=== PATIENT | male | born 1940 | race African-American/Black ===

== ENCOUNTER 2018-07-13 10:01 | Inpatient (IN) ==
--- NOTE | 2018-07-13 10:43 | ED ---
HPI General Chief Complaint: Altered Mental Status Stated Complaint: Medical Time Seen by Provider: 07/13/18 10:20 Source: RN notes reviewed Mode of arrival: EMS Limitations: altered mental status History of Present Illness HPI narrative: The patient is a 78-year-old -[place] male who presents to the emergency department via EMS from hospice for change in mentation and periods of apnea. Apparently the patient recently traveled via train from [facility] to the local area to visit family. The patient apparently had fallen several times at home and was evaluated in the emergency department and the transfer to hospice care center. Apparently the patient became combative and confused overnight it was administered Haldol and Ativan. They then noted the patient had periods of apnea and contacted the family. The patient apparently is on hospice but is a full code and according to EMS the family wants the patient intubated and all measures performed, despite being on hospice. The patient apparently is on hospice for end-stage congestive heart failure. The patient withdraws to pain, but does not answer questions or follow commands. Limited history secondary to patient's mental status. MD complaint: altered mental status, confusion and decreased responsiveness Onset (ago): hour(s) Timing confirmed by: other Severity: moderate Consistency of symptoms: waxing and waning Context: change in medication Associated symptoms: shortness of breath Related Data Home Medications Medication Instructions Recorded Confirmed apixaban [Eliquis] 5 mg PO BID 07/13/18 07/13/18 aspirin 81 mg PO DAILY 07/13/18 07/13/18 ferrous sulfate [FeroSul] 325 mg PO DAILY 07/13/18 07/13/18 glipizide 10 mg PO BID 07/13/18 07/13/18 insulin NPH and regular human 5 unit SUB-Q HS 07/13/18 07/13/18 [Humulin 70/30 U-100 Insulin] insulin NPH and regular human 10 units SUB-Q AC BREAKFAST 07/13/18 07/13/18 [Humulin 70/30 U-100 Insulin] metolazone 2.5 mg PO 3XW 07/13/18 07/13/18 morphine concentrate 5 mg SUBLINGUAL Q2H PRN 07/13/18 07/13/18 polyethylene glycol 3350 [Miralax] 17 gm PO DAILY PRN 07/13/18 07/13/18 sennosides [Senokot] 8.6 mg PO BID PRN 07/13/18 07/13/18 torsemide 20 mg PO DAILY 07/13/18 07/13/18 tramadol [Ultram] 50 mg PO Q6H PRN 07/13/18 07/13/18 Allergies Allergy/AdvReac Type Severity Reaction Status Date / Time No Known Allergies Allergy Unverified 07/13/18 10:15 Review of Systems ROS Unobtainable ROS Unobtainable: unobtainable due to mental status [facility] Medical History Medical History Amyloidosis (Acute) Heart failure (Acute) Social History Social History Substance History: No History of Abuse Smoking Status: Never smoker How Often Do You Have a Drink Containing Alcohol: Never Recent Travel in [facility] within the Last 8 Weeks: Yes Recent Out of Country Travel within the Last 8 Weeks: No Exam Narrative Exam Narrative: GENERAL: Eyes closed, withdraws to pain, does not follow commands. SKIN: Focused skin assessment warm/dry. HEAD: Atraumatic. Normocephalic. EYES: Patient holds his eyelids shut, would not allow me to evaluate pupil responsiveness and regularity. ENT: No nasal bleeding or discharge. Mucous membranes pink and moist. NECK: Trachea midline. No JVD. CARDIOVASCULAR: Regular rate and rhythm. No murmur appreciated. Heart rate in the 60s. RESPIRATORY: No accessory muscle use. Intermittent periods of apnea lasting up to 20 seconds. Response to stimulation. Diminished breath sounds in the bases. Gastrointestinal: Abdomen is soft and nontender. No guarding rigidity. MUSCULOSKELETAL: Bilateral lower extremity pitting edema. Swollen feet noted. NEUROLOGICAL: Eyes closed, says "no "when trying to open his eyelids are asked patient to perform commands. Withdraws to pain. PSYCHIATRIC: Appears confused. Course Consultations Consultation #1: I discussed the patient with Dr. Velazquez who agrees with 23 hour observation. Time: 14:00 Initial Documented Vital Signs Temperature 98.4 F 07/13/18 10:16 Pulse Rate 61 07/13/18 10:16 Respiratory Rate 10 L 07/13/18 10:16 Blood Pressure 138/87 07/13/18 10:16 Pulse Oximetry 100 07/13/18 10:16 Last Documented Vital Signs Temperature 98.4 F 07/13/18 10:16 Pulse Rate 62 07/13/18 13:00 Respiratory Rate 11 L 07/13/18 13:00 Blood Pressure 124/79 07/13/18 13:00 Pulse Oximetry 100 07/13/18 13:00 Medical Decision Making MDM Narrative Medical decision making narrative: IV was established, labs are drawn and sent, and the patient was placed on cardiac telemetry monitoring and continuous pulse oximetry monitoring. EKG was ordered and interpreted. Chest x-ray was obtained. CT the brain was obtained. These measures were instituted as patient has altered mental status and according to hospice patient is a full code and family wants all measures/test performed despite being on hospice. The patient's creatinine is elevated at 2.27, do not have baseline. Potassium is mildly elevated at 5.4. 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 The patient has not awake and alert enough to tell me if he has had any ataxia or urinary incontinence. I did discuss with a family member at bedside who states the patient is normally able to walk with a cane, is able to hold a conversation, and able to travel on a train. She states this is an acute change in his meditation, unsure if that was related to the medications he was administer last night. The daughter is flying in from [facility] into [place] and will arrive somewhere between 5 and 7 PM. The patient still has altered mental status, unsure of the power of criminal attorney's wishes at this time, therefore, the patient will be 23 hour observation to see if the patient clears from the medications and to determine the goal of therapy from the power of criminal attorney, his daughter. Medical Screen Exam Complete: Yes Emergency Medical Condition: Yes Differential Diagnosis Differential Diagnosis: Differential diagnosis includes delirium, medication side effect, subdural hemorrhage, UTI, congestive heart failure, acute renal failure, pulmonary edema, sundowning syndrome. Lab Data Result diagrams: 07/13/18 10:47 07/13/18 11:31 Lab Results 07/13/18 07/13/18 07/13/18 Range/Units 10:47 11:31 11:31 WBC 5.2 (4.0-11.0) th/mm3 RBC 5.38 (4.50-5.90) mil/mm3 Hgb 14.2 (13.0-17.0) gm/dL Hct 42.9 (39.0-51.0) % MCV 79.7 L (80.0-100.0) fL MCH 26.4 L (27.0-34.0) pg MCHC 33.1 (32.0-36.0) % RDW 17.6 H (11.6-17.2) % Plt Count 152 (150-450) th/mm3 MPV 10.7 (7.0-11.0) fL Neut % (Auto) 52.7 (16.0-70.0) % Lymph % (Auto) 29.4 (9.0-44.0) % Rincon % (Auto) 15.0 H (0.0-8.0) % Eos % (Auto) 1.8 (0.0-4.0) % Baso % (Auto) 1.1 (0.0-2.0) % Neut # (Auto) 2.7 (1.8-7.7) th/mm3 Lymph # (Auto) 1.5 (1.0-4.8) th/mm3 Rincon # (Auto) 0.8 (0.0-0.9) th/mm3 Eos # (Auto) 0.1 (0.0-0.4) th/mm3 Baso # (Auto) 0.1 (0.0-0.2) th/mm3 WBC Differential . Differential Comment Auto diff final Sodium 135 L (136-145) meq/L Potassium 5.4 H (3.5-5.1) meq/L Chloride 104 (98-107) meq/L Carbon Dioxide 20.9 L (21.0-32.0) meq/L Anion Gap 10 (5-15) meq/L BUN 49 H (7-18) mg/dL Creatinine 2.27 H (0.60-1.30) mg/dL Estimated GFR 34 L (>89) mL/min Random Glucose 173 H (74-106) mg/dL Calcium 8.5 (8.5-10.1) mg/dL Total Bilirubin 1.3 H (0.2-1.0) mg/dL AST 41 H (15-37) U/L ALT 25 (12-78) U/L Alkaline Phosphatase 129 H (45-117) U/L Ammonia 35 H (11-32) mcmol/L Total Creatine Kinase 216 (39-308) U/L Troponin I 0.36 H (0.02-0.05) ng/mL Total Protein 7.1 (6.4-8.2) g/dL Albumin 3.2 L (3.4-5.0) g/dL TSH 11.600 H (0.358-3.740) uIU/mL Free T4 (0.76-1.46) ng/dL Free T3 (2.18-3.98) pg/mL Urine Color (Yellw/Straw) Urine Clarity (Clear) Urine pH (5.0-8.5) Ur Specific Felch (1.002-1.035) Urine Protein (Neg-Trace) mg/dL Urine Glucose (UA) (Negative) mg/dL Urine Ketones (Negative) mg/dL Urine Occult Blood (Negative) Urine Nitrate (Negative) Urine Bilirubin (Negative) Urine Urobilinogen (Less than 2) mg/dL Ur Leukocyte Esterase (Negative) Urine RBC (0-3) /hpf Urine WBC (0-5) /hpf Urine Bacteria (None) /hpf Hyaline Casts (0-3) /lpf Urine Mucus (Occasional) /lpf Micro UA Comment Ur Microscopic Review Urine Culture Comments 07/13/18 07/13/18 Range/Units 11:31 11:45 WBC (4.0-11.0) th/mm3 RBC (4.50-5.90) mil/mm3 Hgb (13.0-17.0) gm/dL Hct (39.0-51.0) % MCV (80.0-100.0) fL MCH (27.0-34.0) pg MCHC (32.0-36.0) % RDW (11.6-17.2) % Plt Count (150-450) th/mm3 MPV (7.0-11.0) fL Neut % (Auto) (16.0-70.0) % Lymph % (Auto) (9.0-44.0) % Rincon % (Auto) (0.0-8.0) % Eos % (Auto) (0.0-4.0) % Baso % (Auto) (0.0-2.0) % Neut # (Auto) (1.8-7.7) th/mm3 Lymph # (Auto) (1.0-4.8) th/mm3 Rincon # (Auto) (0.0-0.9) th/mm3 Eos # (Auto) (0.0-0.4) th/mm3 Baso # (Auto) (0.0-0.2) th/mm3 WBC Differential Differential Comment Sodium (136-145) meq/L Potassium (3.5-5.1) meq/L Chloride (98-107) meq/L Carbon Dioxide (21.0-32.0) meq/L Anion Gap (5-15) meq/L BUN (7-18) mg/dL Creatinine (0.60-1.30) mg/dL Estimated GFR (>89) mL/min Random Glucose (74-106) mg/dL Calcium (8.5-10.1) mg/dL Total Bilirubin (0.2-1.0) mg/dL AST (15-37) U/L ALT (12-78) U/L Alkaline Phosphatase (45-117) U/L Ammonia (11-32) mcmol/L Total Creatine Kinase (39-308) U/L Troponin I (0.02-0.05) ng/mL Total Protein (6.4-8.2) g/dL Albumin (3.4-5.0) g/dL TSH (0.358-3.740) uIU/mL Free T4 1.26 (0.76-1.46) ng/dL Free T3 2.56 (2.18-3.98) pg/mL Urine Color Yellow (Yellw/Straw) Urine Clarity Hazy H (Clear) Urine pH 5.0 (5.0-8.5) Ur Specific Felch 1.012 (1.002-1.035) Urine Protein 30 H (Neg-Trace) mg/dL Urine Glucose (UA) Negative (Negative) mg/dL Urine Ketones Negative (Negative) mg/dL Urine Occult Blood Small H (Negative) Urine Nitrate Negative (Negative) Urine Bilirubin Negative (Negative) Urine Urobilinogen Less than 2 (Less than 2) mg/dL Ur Leukocyte Esterase Negative (Negative) Urine RBC 1 (0-3) /hpf Urine WBC 1 (0-5) /hpf Urine Bacteria Rare H (None) /hpf Hyaline Casts 1 (0-3) /lpf Urine Mucus Few H (Occasional) /lpf Micro UA Comment Culture not ind Ur Microscopic Review Not Reportable Urine Culture Comments Culture not ind Imaging Data Radiologist's impression: Chest X-Ray 07/13/18 10:36 CONCLUSION: Cardiomegaly. No acute pulmonary disease. Head CT 07/13/18 10:36 CONCLUSION: 1. Diffuse ventriculomegaly that is out of proportion to degree of atrophy. Clinical correlation for normal pressure hydrocephalus is recommended. 2. Otherwise, no acute intracranial abnormality. . ECG Data EKG Prior to Arrival: No Attestation: I personally reviewed and interpreted this ECG as follows: Interpretation: Electronic ventricular paced rhythm at a rate of 60. No further analysis. Discharge Plan Discharge Disposition Patient Disposition: 30 Still Patient Discharge Condition Condition: Stable Discharge Details Diagnosis: Delirium due to general medical condition, Altered mental status, Elevated troponin, Acute kidney injury Physicians Team ED Provider: Zion Estrada Primary Care Provider: UNKNOWN, Attending Provider: Shashank Velazquez Rxs /Orders / Referrals /Forms Prescriptions: No Action metolazone 2.5 mg Tablet 2.5 mg PO 3XW RF: 0 sennosides [Senokot] 8.6 mg Tablet 8.6 mg PO BID PRN (Reason: Constipation) RF: 0 torsemide 20 mg Tablet 20 mg PO DAILY RF: 0 polyethylene glycol 3350 [Miralax] 17 gram Powder In Packet 17 gm PO DAILY PRN (Reason: Constipation) RF: 0 glipizide 10 mg Tablet 10 mg PO BID RF: 0 insulin NPH and regular human [Humulin 70/30 U-100 Insulin] 100 unit/mL (70-30 ) Suspension 5 unit SUB-Q HS RF: 0 insulin NPH and regular human [Humulin 70/30 U-100 Insulin] 100 unit/mL (70-30 ) Suspension 10 units Sub-Q AC BREAKFAST RF: 0 tramadol [Ultram] 50 mg Tablet 50 mg PO Q6H PRN (Reason: Pain) RF: 0 ferrous sulfate [FeroSul] 325 mg (65 mg iron) Tablet 325 mg PO DAILY RF: 0 aspirin 81 mg Tablet,Chewable 81 mg PO DAILY RF: 0 morphine concentrate 20 mg/mL Syringe 5 mg SUBLINGUAL Q2H PRN (Reason: Pain) RF: 0 apixaban [Eliquis] 5 mg Tablet 5 mg PO BID RF: 0 Discharge Interventions Interventions: Vital Signs Last Done: 07/13/18 13:00 Status ED Status: Admitted Observation Patient
--- NOTE | 2018-07-13 11:01 | XR ---
EXAM DATE: 07/13/2018 10:54 AM EDT AGE/SEX: 78 years / Male INDICATIONS: Short of breath CLINICAL DATA: This is the patient's initial encounter. Patient reports that signs and symptoms have been present for 1 day and indicates a pain score of Nonresponsive. MEDICAL/SURGICAL HISTORY: Non-responsive. Non-responsive. COMPARISON: No prior exams available for comparison. FINDINGS: The cardiac silhouette is enlarged in transverse diameter. The lungs are free of acute parenchymal op acity. No effusions are identified. The aortic knob is prominent with tortuosity of the descending th oracic aorta. CONCLUSION: Cardiomegaly. No acute pulmonary disease. Electronically signed by: Fuentes Grant MD 07/13/2018 10:59 AM EDT
[2018-07-13 11:06] LABS: Baso # (Auto) 0.1 th/mm3 (0.0-0.2); Baso % (Auto) 1.1 % (0.0-2.0); Eos # (Auto) 0.1 th/mm3 (0.0-0.4); Eos % (Auto) 1.8 % (0.0-4.0); Hematocrit 42.9 % (39.0-51.0); Hemoglobin 14.2 gm/dL (13.0-17.0); Lymph # (Auto) 1.5 th/mm3 (1.0-4.8); Lymph % (Auto) 29.4 % (9.0-44.0); Mean Corpuscular HGB Conc 33.1 % (32.0-36.0); Mean Corpuscular Hemoglobin 26.4 pg (27.0-34.0); Mean Corpuscular Volume 79.7 fL (80.0-100.0); Mean Platelet Volume 10.7 fL (7.0-11.0); Mono # (Auto) 0.8 th/mm3 (0.0-0.9); Neut # (Auto) 2.7 th/mm3 (1.8-7.7); Neut % (Auto) 52.7 % (16.0-70.0); Platelet Count 152 th/mm3 (150-450); Red Blood Count 5.38 mil/mm3 (4.50-5.90); Red Cell Distribution Width 17.6 % (11.6-17.2); White Blood Count 5.2 th/mm3 (4.0-11.0)
--- NOTE | 2018-07-13 11:36 | CT ---
EXAM DATE: 07/13/2018 11:23 AM EDT AGE/SEX: 78 years / Male INDICATIONS: Altered mental status CLINICAL DATA: This is the patient's initial encounter. Patient reports that signs and symptoms have been present for 1 day and indicates a pain score of Nonresponsive. MEDICAL/SURGICAL HISTORY: Cardiovascular disease. None. RADIATION DOSE: 56.35 CTDI (mGy) COMPARISON: No prior exams available for comparison. TECHNIQUE: CT of the head without contrast. Using automated exposure control and adjustment of the mA and/or kV according to patient size, radiation dose was kept as low as reasonably achievable to ob tain optimal diagnostic quality images. DICOM format image data is available electronically for revi ew and comparison. FINDINGS: Cerebrum: Moderate diffuse cerebral atrophy. Diffuse ventriculomegaly out of proportion to degree of atrophy. Mild periventricular white matter hypodensities. No evidence of midline shift, mass lesion, hemorrhage or acute infarction. No extraaxial fluid collections are seen. Posterior Fossa: The cerebellum and brainstem are intact. The 4th ventricle is midline. The cerebe llopontine angle is unremarkable. Extracranial: The visualized portion of the orbits is intact. Skull: The calvaria is intact. No evidence of skull fracture. CONCLUSION: 1. Diffuse ventriculomegaly that is out of proportion to degree of atrophy. Clinical correlation for normal pressure hydrocephalus is recommended. 2. Otherwise, no acute intracranial abnormality. . Electronically signed by: Hima Mays MD 07/13/2018 11:35 AM EDT
[2018-07-13 12:14] LABS: Bacteria,Urine Rare /hpf; Bilirubin,Urine Negative (Negative); Clarity,Urine Hazy (Clear); Color,Urine Yellow (Yellw/Straw); Glucose,Urine (UA) Negative (Negative); Hyaline Casts,Urine 1 /lpf (0-3); Leukocyte Esterase,Urine Negative (Negative); Mucus,Urine Few /lpf (Occasional); Nitrite,Urine Negative (Negative); Specific Gravity,Urine 1.012 (1.002-1.035)
[2018-07-13 12:21] LABS: Alanine Aminotransferase 25 U/L (12-78); Albumin 3.2 g/dL (3.4-5.0); Anion Gap 10 meq/L (5-15); Aspartate Aminotransferase 41 U/L (15-37); Blood Urea Nitrogen 49 mg/dL (7-18); Calcium 8.5 mg/dL (8.5-10.1); Carbon Dioxide 20.9 meq/L (21.0-32.0); Chloride 104 meq/L (98-107); Glomerular Filtration Rate 34 mL/min (>89); Glucose,Random 173 mg/dL (74-106); Sodium 135 meq/L (136-145)
[2018-07-13 12:22] LABS: Potassium 5.4 meq/L (3.5-5.1)
[2018-07-13 12:33] LABS: Alkaline Phosphatase 129 U/L (45-117); Creatine Kinase 216 U/L (39-308); Total Protein 7.1 g/dL (6.4-8.2); Troponin I 0.36 ng/mL (0.02-0.05)
[2018-07-13 13:48] LABS: Free T4 (Free Thyroxine) 1.26 ng/dL (0.76-1.46); Triiodothyronine (T3) Free 2.56 pg/mL (2.18-3.98)
[2018-07-13] MEDS ORDERED: Bisacodyl 10 MG Supp RECTAL PRN (14:03)
[2018-07-13] MEDS ORDERED: Sodium Chlor 0.9% Inj 500 ML IV.SIG SCH (15:00)
--- NOTE | 2018-07-13 16:19 | ECG ---
Date Performed: 07/13/2018 Time Performed: 10:50:45 PTAGE: 78 years EKG: ELECTRONIC VENTRICULAR PACEMAKER ABNORMAL RHYTHM ECG NO PREVIOUS TRACING DOCTOR: Fuentes Torers Interpretating Date/Time 07/13/2018 16:17:35
--- NOTE | 2018-07-13 17:12 | P.HPIM ---
History of Present Illness Service: [facility] Primary Care Physician: UNKNOWN History of Present Illness: The history is limited due to the patient's current condition and mentation. Most of the history obtained from the EMR, the patient's cousin at bedside. He is a 78-year-old male with a history of diabetes and end-stage CHF who presented to the emergency room from hospice. The patient was on hospice in [place]. There was in agreement with hospice down here. The patient arrived a couple of days ago to visit with family. He has been very tired and apparently fell multiple times at home. Lower extremity edema has been getting worse. He was eventually taken to the hospice care center. He reportedly became combative and confused overnight and was given Haldol and Ativan. When the patient's family were contacted today, they indicated that he was a full code and they wanted aggressive measures. Patient is reportedly on hospice for end- stage CHF. The patient's daughter is reportedly flying into town later today from [place] to further direct the patient's care. Patient himself briefly wakes up to stimulation but quickly falls back asleep. Not really interacting. - Diagnosis (1) Acute encephalopathy (2) Diabetes (3) CHF (congestive heart failure) (4) Delirium due to general medical condition (5) Elevated troponin (6) Acute kidney injury Review of Systems unobtainable due to mental status PMFSH - History History Provided By: Medical Record, Gunner Mate / EMT - Medical History Medical History: Medical History (Last Updated 07/13/18 @ 17:34 by Shashank Velazquez MD) Amyloidosis CHF (congestive heart failure) Diabetes Heart failure - Family History Family History: Family History (Last Updated 07/13/18 @ 17:04 by Shashank Velazquez MD) Other Family history non-contributory - Tobacco History Smoking Status: Unknown if ever smoked - Alcohol History How Often Do You Have a Drink Containing Alcohol: Unable to Obtain - Substance Use History Substance History: No History of Abuse - Travel History Recent Travel in the [place] Within the Last 8 Weeks: Yes Recent Travel Out of the Country Within the Last 8 Weeks: No - Immunization History Tetanus Immunization: Unsure Hx Influenza Vaccine This Season: Yes Medications and Allergies Active Medications: Active Medications Al Hydroxide/Mg Hydroxide (Milk Of Magnesia Liq) 30 ml PO Q12H PRN PRN Reason: Mild Constipation Bisacodyl (Dulcolax Supp) 10 mg RECTAL DAILY PRN PRN Reason: SEVERE CONSITIPATION Ferrous Sulfate (Ferosul) 325 mg PO DAILY DONG Sodium Chloride (Ns Inj) 500 mls @ 0 mls/hr IV.SIG BOLUS DONG Lactulose (Lactulose Liq) 30 ml PO DAILY PRN PRN Reason: SEVERE CONSITIPATION Sennosides (Senokot) 17.2 mg PO Q12H PRN PRN Reason: Moderate Constipation Sodium Chloride (Ns Flush) 2 ml IV.FLUSH PRN PRN PRN Reason: FLUSH AFTER USING IV ACCESS Allergies Allergy/AdvReac Type Severity Reaction Status Date / Time No Known Allergies Allergy Unverified 07/13/18 10:15 Home Medications Medication Instructions Recorded Confirmed Type apixaban [Eliquis] 5 mg PO BID 07/13/18 07/13/18 History aspirin 81 mg PO DAILY 07/13/18 07/13/18 History ferrous sulfate [FeroSul] 325 mg PO DAILY 07/13/18 07/13/18 History glipizide 10 mg PO BID 07/13/18 07/13/18 History insulin NPH and regular human 5 unit SUB-Q HS 07/13/18 07/13/18 History [Humulin 70/30 U-100 Insulin] insulin NPH and regular human 10 units SUB-Q AC BREAKFAST 07/13/18 07/13/18 History [Humulin 70/30 U-100 Insulin] metolazone 2.5 mg PO 3XW 07/13/18 07/13/18 History morphine concentrate 5 mg SUBLINGUAL Q2H PRN 07/13/18 07/13/18 History polyethylene glycol 3350 [Miralax] 17 gm PO DAILY PRN 07/13/18 07/13/18 History sennosides [Senokot] 8.6 mg PO BID PRN 07/13/18 07/13/18 History torsemide 20 mg PO DAILY 07/13/18 07/13/18 History tramadol [Ultram] 50 mg PO Q6H PRN 07/13/18 07/13/18 History Exam Vital signs: Vital Signs 07/13/18 10:16 07/13/18 10:51 07/13/18 10:55 Temperature 98.4 F Pulse Rate 61 59 L Respiratory Rate 10 L 19 Blood Pressure 138/87 133/82 Pulse Oximetry 100 100 100 07/13/18 13:00 07/13/18 15:00 07/13/18 16:00 Temperature Pulse Rate 62 59 L 61 Respiratory Rate 11 L 16 16 Blood Pressure 124/79 129/76 140/84 Pulse Oximetry 100 100 98 07/13/18 16:04 Temperature Pulse Rate Respiratory Rate Blood Pressure Pulse Oximetry 99 Intake & Output 07/12/18 07/13/18 07/13/18 18:59 06:59 18:59 Weight 94.347 kg Narrative: GENERAL: Elderly male, appears sedated CARDIOVASCULAR: Distant heart sound. Normal rate and regular rhythm without significant murmur. RESPIRATORY: Good respiratory efforts. Breath sounds equal and clear to auscultation bilaterally. GASTROINTESTINAL: Abdomen soft, non-tender, non-distended. Normal active bowel sounds MUSCULOSKELETAL: Bilateral lower extremities with 2+ edema NEURO: Lethargic. Briefly woke up and move all extremities. No focal weakness noted. Results - Labs CBC & Chem 7: 07/13/18 10:47 07/13/18 11:31 Labs: Short CBC 07/13/18 Range/Units 10:47 WBC 5.2 (4.0-11.0) th/mm3 Hgb 14.2 (13.0-17.0) gm/dL Hct 42.9 (39.0-51.0) % Plt Count 152 (150-450) th/mm3 BMP 07/13/18 11:31 Sodium 135 L Potassium 5.4 H Chloride 104 Carbon Dioxide 20.9 L BUN 49 H Creatinine 2.27 H Calcium 8.5 Cardiac Enzymes 07/13/18 07/13/18 Range/Units 11:31 15:04 Total Creatine Kinase 216 (39-308) U/L Troponin I 0.36 H 0.32 H (0.02-0.05) ng/mL Liver Function 07/13/18 Range/Units 11:31 Total Bilirubin 1.3 H (0.2-1.0) mg/dL AST 41 H (15-37) U/L ALT 25 (12-78) U/L Alkaline Phosphatase 129 H (45-117) U/L Albumin 3.2 L (3.4-5.0) g/dL Urine 07/13/18 Range/Units 11:45 Urine Color Yellow (Yellw/Straw) Urine Clarity Hazy H (Clear) Urine pH 5.0 (5.0-8.5) Ur Specific [place] 1.012 (1.002-1.035) Urine Protein 30 H (Neg-Trace) mg/dL Urine Glucose (UA) Negative (Negative) mg/dL - Imaging Impressions Chest X-Ray 07/13/18 10:36 CONCLUSION: Cardiomegaly. No acute pulmonary disease. Head CT 07/13/18 10:36 CONCLUSION: 1. Diffuse ventriculomegaly that is out of proportion to degree of atrophy. Clinical correlation for normal pressure hydrocephalus is recommended. 2. Otherwise, no acute intracranial abnormality. . Caprini VTE Risk Assessment Caprini VTE Risk Assessment: Moderate/High Risk (score >= 2) Caprini Risk Assessment Model: Point Value = 1 Point Value = 2 Point Value = 3 Point Value = 5 Age 41-60 Minor surgery BMI > 25 kg/m2 Swollen legs Varicose veins or History of unexplained or recurrent spontaneous Oral contraceptives or hormone replacement Sepsis (< 1 month) Serious lung disease, including pneumonia (< 1 month) Abnormal pulmonary function Acute myocardial infarction Congestive heart failure (< 1 month) History of inflammatory bowel disease Medical patient at bed rest Age 61-74 Arthroscopic surgery Major open surgery (> 45 min) Laparoscopic surgery (> 45 min) Malignancy Confined to bed (> 72 hours) Immobilizing plaster cast Central venous access Age >= 75 History of VTE Family history of VTE Factor V Leiden Prothrombin [id number] Lupus anticoagulant Anticardiolipin antibodies Elevated serum homocysteine Heparin-induced thrombocytopenia Other congenital or acquired thrombophilia Stroke (< 1 month) Elective arthroplasty Hip, pelvis, or leg fracture Acute spinal cord injury (< 1 month) Prophylaxis Regimen: Total Risk Factor Score Risk Level Prophylaxis Regimen 0-1 Low Early ambulation 2 Moderate Order ONE of the following: *Sequential Compression Device (SCD) *Heparin 5000 units SQ BID 3-4 Higher Order ONE of the following medications: *Heparin 5000 units SQ TID *Enoxaparin/Lovenox 40 mg SQ daily (WT < 150 kg, CrCl > 30 mL/min) *Enoxaparin/Lovenox 30 mg SQ daily (WT < 150 kg, CrCl > 10-29 mL/min) *Enoxaparin/Lovenox 30 mg SQ BID (WT < 150 kg, CrCl > 30 mL/min) AND/OR *Sequential Compression Device (SCD) 5 or more Highest Order ONE of the following medications: *Heparin 5000 units SQ TID (Preferred with Epidurals) *Enoxaparin/Lovenox 40 mg SQ daily (WT < 150 kg, CrCl > 30 mL/min) *Enoxaparin/Lovenox 30 mg SQ daily (WT < 150 kg, CrCl > 10-29 mL/min) *Enoxaparin/Lovenox 30 mg SQ BID (WT < 150 kg, CrCl > 30 mL/min) AND *Sequential Compression Device (SCD) Assessment and Plan - Assessment (1) Acute encephalopathy Code(s): G93.40 - Encephalopathy, unspecified Status: Acute (2) Diabetes Code(s): E11.9 - Type 2 diabetes mellitus without complications Status: Acute (3) CHF (congestive heart failure) Code(s): I50.9 - Heart failure, unspecified Status: Acute (4) Delirium due to general medical condition Code(s): F05 - Delirium due to known physiological condition Status: Acute (5) Elevated troponin Code(s): R74.8 - Abnormal levels of other serum enzymes Status: Acute (6) Acute kidney injury Code(s): N17.9 - Acute kidney failure, unspecified Status: Acute - Plan 78-year-old male who reportedly was on hospice and has been falling more and more recently. The patient was initially had hospice care center and was transferred to the hospital when his family requested aggressive care. Acute encephalopathy: There was reported falls and then some episodes of combativeness. Patient subsequently was given Haldol and Ativan when he moves mental status deteriorated. - Head CT revealed Diffuse ventriculomegaly that is out of proportion to degree of atrophy. Clinical correlation for normal pressure hydrocephalus is recommended. Otherwise no acute intracranial abnormality. - Will continue with neuro checks. - Consult neurology for assistance - Suspect Haldol and Ativan contributing to sedated state. -The patient's daughter later arrived. I discussed the case with her. For now they want full aggressive care including resuscitation if needed. However she states she does not want him to be on sedated medication that she will assist with redirecting him if he becomes confused. -Consult palliative care to assist with goals of care. History of CHF: No evidence of pulmonary volume overload for now. However he does have LE pitting edema. Given mental status and renal function, hold diuretics for now. - Continue to monitor. -Patient was on hospice for end-stage CHF. Diabetes: - Hold oral hypoglycemic agents. Sliding scale insulin with Accu-Cheks. Acute versus chronic renal failure: - His baseline is unknown and the patient has been on hospice. - Since he is not eating, will give him a total of 500 cc normal saline. - Repeat a BMP later today. Elevated troponin: - Suspect this is likely secondary to renal failure. - Follow-up serial troponin. Discussed Condition With: Dr. Estrada Discharge Planning: Admit to neuro floor. Monitor closely.
[2018-07-13] MEDS ORDERED: Sodium Chlor 0.9% Inj 500 ML IV.CONT SCH (17:36)
[2018-07-13 17:51] LABS: ABG Base Excess -2.9 mmol/L (-2-2); ABG PCO2 29 mmHg (38-42); ABG PO2 102 mmHg (61-120)
--- NOTE | 2018-07-13 19:25 | MB ---
cc: Fuentes Lucio MD DATE: 07/13/2018 HISTORY OF PRESENT ILLNESS: A 78-year-old man with a history of hypertension, diabetes, hypercholesterolemia, stroke 3 years ago, possibly congestive heart failure, pacemaker, prostate cancer, who was in hospice up in [facility], presumably because of generally weak or falls or immobility and then came down here on vacation. Even though he was on hospice he came down on the car train with his niece and then she found that he fell twice in the condo so she evidently brought him over to the local hospice center where he evidently was agitated and got sedation here. MEDICATIONS AT HOME: 1. Glipizide. 2. Aspirin 81. 3. Eliquis 5 b.i.d. 4. Torsemide. 5. Metolazone. 6. Ultram 50 every 6 hours p.r.n. 7. Morphine 5 mg sublingual q.2 p.r.n. 8. Insulin. He evidently was having some apnea. He became combative and confused overnight and was given Haldol and Ativan then he had apnea. The family was called and he was brought into the hospital. The family wanted the patient to be intubated and all measures performed despite being on hospice. Evidently was given the Haldol over in hospice as far as I can tell. REVIEW OF SYSTEMS: According to the niece, no history of OH, or known atrial fibrillation, to renal, hepatic, pulmonary disease, thyroid disease, lupus, ulcer, seizure. SOCIAL HISTORY: Not a smoker or drinker, lives in hospice. FAMILY HISTORY: Negative for cancer, seizure or stroke. PHYSICAL EXAMINATION: VITAL SIGNS: Here he is afebrile on exam, 59-65, 18, 140/84. NECK: There are no carotid bruits. HEART: Regular rate and rhythm. I did not detect a murmur. NEUROLOGIC: Initially not very responsive, lethargic stay. Pupils are equal. Face is symmetric. He sticks his tongue out slightly for me. He moves all of his extremities well. The toes are downgoing bilaterally. DTRs are absent throughout. He felt discomfort in the bottom of his feet bilaterally. He knows he lives in [place], but very sleepy after the meds. LABORATORY DATA: CBC is essentially normal. UA is negative. Basic metabolic profile normal except for creatinine 2.27, BUN 49. CPK is normal. Troponin 0.36, albumin 3.2. TSH is high at 11.6. T4 normal. UA essentially normal. CT scan of the brain shows enlarged ventricles. I do not see any major infarct. He may have some transependymal flow. IMPRESSION: It is possible that he could have normal pressure hydrocephalus. We will check some additional blood work on him and I would hold any sedatives and his daughter is going to be in town to give us a better idea about the whole hospice situation. MD BRYAN Munguia/barb , 05:27 PM , 05:34 PM
[2018-07-13 22:38] LABS: Calcium 8.9 mg/dL (8.5-10.1); Carbon Dioxide 17.9 meq/L (21.0-32.0); Potassium 4.5 meq/L (3.5-5.1)
[2018-07-13 22:51] LABS: Troponin I 0.3 ng/mL (0.02-0.05)
--- NOTE | 2018-07-14 07:07 | P.PNNEU ---
Subjective Active Medications: Active Medications Al Hydroxide/Mg Hydroxide (Milk Of Magnesia Liq) 30 ml PO Q12H PRN PRN Reason: Mild Constipation Bisacodyl (Dulcolax Supp) 10 mg RECTAL DAILY PRN PRN Reason: SEVERE CONSITIPATION Ferrous Sulfate (Ferosul) 325 mg PO DAILY DONG Lactulose (Lactulose Liq) 30 ml PO DAILY PRN PRN Reason: SEVERE CONSITIPATION Sennosides (Senokot) 17.2 mg PO Q12H PRN PRN Reason: Moderate Constipation Sodium Chloride (Ns Flush) 2 ml IV.FLUSH PRN PRN PRN Reason: FLUSH AFTER USING IV ACCESS Allergies/Adverse Reactions: Allergies Allergy/AdvReac Type Severity Reaction Status Date / Time No Known Allergies Allergy Unverified 07/13/18 10:15 Physical Exam Vital signs: Vital Signs 07/13/18 10:16 07/13/18 10:51 07/13/18 10:55 Temperature 98.4 F Pulse Rate 61 59 L Respiratory Rate 10 L 19 Blood Pressure 138/87 133/82 Pulse Oximetry 100 100 100 07/13/18 13:00 07/13/18 15:00 07/13/18 16:00 Temperature Pulse Rate 62 59 L 61 Respiratory Rate 11 L 16 16 Blood Pressure 124/79 129/76 140/84 Pulse Oximetry 100 100 98 07/13/18 16:04 07/13/18 17:20 07/13/18 17:23 Temperature Pulse Rate 65 Respiratory Rate 18 Blood Pressure Pulse Oximetry 99 07/13/18 20:00 07/13/18 23:58 07/14/18 03:50 Temperature 97.2 F L 97.4 F L 97.7 F Pulse Rate 66 64 62 Respiratory Rate 18 18 20 Blood Pressure 134/89 131/81 139/80 Pulse Oximetry 100 100 100 Intake & Output 07/13/18 07/14/18 07/14/18 18:59 06:59 18:59 Intake Total 500 / 500 Balance 500 / 500 Weight 94.347 kg Intake: IV 500 / 500 NS Inj 500 ML @ 70 mls/hr IV. 500 / 500 CONT .Q7H9M DONG Rx#:[id number] Other: # Voids 2 Narrative: asleep now acc to daughter was waking up last noc from sedatives Objective Laboratory Results - last 24 hr 07/13/18 07/13/18 07/13/18 10:47 11:31 11:31 WBC 5.2 RBC 5.38 Hgb 14.2 Hct 42.9 MCV 79.7 L MCH 26.4 L MCHC 33.1 RDW 17.6 H Plt Count 152 MPV 10.7 Neut % (Auto) 52.7 Lymph % (Auto) 29.4 [place] % (Auto) 15.0 H Eos % (Auto) 1.8 Baso % (Auto) 1.1 Neut # (Auto) 2.7 Lymph # (Auto) 1.5 [place] # (Auto) 0.8 Eos # (Auto) 0.1 Baso # (Auto) 0.1 WBC Differential . Differential Comment Auto diff final Puncture Site Patient Temperature O2 Saturation ABG pH ABG pCO2 ABG pO2 ABG HCO3 ABG O2 Content ABG Base Excess ABG Methemoglobin Stephan Test Hemoglobin Carboxyhemoglobin Inspired O2 Critical Value Sodium 135 L Potassium 5.4 H Chloride 104 Carbon Dioxide 20.9 L Anion Gap 10 BUN 49 H Creatinine 2.27 H Estimated GFR 34 L POC Glucose Random Glucose 173 H Calcium 8.5 Total Bilirubin 1.3 H AST 41 H ALT 25 Alkaline Phosphatase 129 H Ammonia 35 H Total Creatine Kinase 216 Troponin I 0.36 H Total Protein 7.1 Albumin 3.2 L Vitamin B12 TSH 11.600 H Free T4 Free T3 Urine Color Urine Clarity Urine pH Ur Specific [place] Urine Protein Urine Glucose (UA) Urine Ketones Urine Occult Blood Urine Nitrate Urine Bilirubin Urine Urobilinogen Ur Leukocyte Esterase Urine RBC Urine WBC Urine Bacteria Hyaline Casts Urine Mucus Micro UA Comment Ur Microscopic Review Urine Culture Comments 07/13/18 07/13/18 07/13/18 11:31 11:45 15:04 WBC RBC Hgb Hct MCV MCH MCHC RDW Plt Count MPV Neut % (Auto) Lymph % (Auto) [place] % (Auto) Eos % (Auto) Baso % (Auto) Neut # (Auto) Lymph # (Auto) [place] # (Auto) Eos # (Auto) Baso # (Auto) WBC Differential Differential Comment Puncture Site Patient Temperature O2 Saturation ABG pH ABG pCO2 ABG pO2 ABG HCO3 ABG O2 Content ABG Base Excess ABG Methemoglobin Stephan Test Hemoglobin Carboxyhemoglobin Inspired O2 Critical Value Sodium Potassium Chloride Carbon Dioxide Anion Gap BUN Creatinine Estimated GFR POC Glucose Random Glucose Calcium Total Bilirubin AST ALT Alkaline Phosphatase Ammonia Total Creatine Kinase Troponin I 0.32 H Total Protein Albumin Vitamin B12 TSH Free T4 1.26 Free T3 2.56 Urine Color Yellow Urine Clarity Hazy H Urine pH 5.0 Ur Specific [place] 1.012 Urine Protein 30 H Urine Glucose (UA) Negative Urine Ketones Negative Urine Occult Blood Small H Urine Nitrate Negative Urine Bilirubin Negative Urine Urobilinogen Less than 2 Ur Leukocyte Esterase Negative Urine RBC 1 Urine WBC 1 Urine Bacteria Rare H Hyaline Casts 1 Urine Mucus Few H Micro UA Comment Culture not ind Ur Microscopic Review Not Reportable Urine Culture Comments Culture not ind 07/13/18 07/13/18 07/13/18 17:30 17:35 19:11 WBC RBC Hgb Hct MCV MCH MCHC RDW Plt Count MPV Neut % (Auto) Lymph % (Auto) [place] % (Auto) Eos % (Auto) Baso % (Auto) Neut # (Auto) Lymph # (Auto) [place] # (Auto) Eos # (Auto) Baso # (Auto) WBC Differential Differential Comment Puncture Site Right radial Patient Temperature 98.6 O2 Saturation 96 ABG pH 7.46 H ABG pCO2 29 L ABG pO2 102 ABG HCO3 20 L ABG O2 Content 16.8 ABG Base Excess -2.9 L ABG Methemoglobin 0.5 Stephan Test Present Hemoglobin 12.4 Carboxyhemoglobin 1.6 Inspired O2 21 Critical Value No Sodium 139 Potassium 4.5 D Chloride 104 Carbon Dioxide 17.9 L Anion Gap 17 H BUN 57 H Creatinine 2.45 H Estimated GFR 31 L POC Glucose 155 H Random Glucose 157 H Calcium 8.9 Total Bilirubin AST ALT Alkaline Phosphatase Ammonia Total Creatine Kinase Troponin I 0.30 H Total Protein Albumin Vitamin B12 TSH Free T4 Free T3 Urine Color Urine Clarity Urine pH Ur Specific [place] Urine Protein Urine Glucose (UA) Urine Ketones Urine Occult Blood Urine Nitrate Urine Bilirubin Urine Urobilinogen Ur Leukocyte Esterase Urine RBC Urine WBC Urine Bacteria Hyaline Casts Urine Mucus Micro UA Comment Ur Microscopic Review Urine Culture Comments 07/13/18 07/13/18 19:11 23:27 WBC RBC Hgb Hct MCV MCH MCHC RDW Plt Count MPV Neut % (Auto) Lymph % (Auto) [place] % (Auto) Eos % (Auto) Baso % (Auto) Neut # (Auto) Lymph # (Auto) [place] # (Auto) Eos # (Auto) Baso # (Auto) WBC Differential Differential Comment Puncture Site Patient Temperature O2 Saturation ABG pH ABG pCO2 ABG pO2 ABG HCO3 ABG O2 Content ABG Base Excess ABG Methemoglobin Stephan Test Hemoglobin Carboxyhemoglobin Inspired O2 Critical Value Sodium Potassium Chloride Carbon Dioxide Anion Gap BUN Creatinine Estimated GFR POC Glucose 132 H Random Glucose Calcium Total Bilirubin AST ALT Alkaline Phosphatase Ammonia Total Creatine Kinase Troponin I Total Protein Albumin Vitamin B12 1832 H TSH Free T4 Free T3 Urine Color Urine Clarity Urine pH Ur Specific [place] Urine Protein Urine Glucose (UA) Urine Ketones Urine Occult Blood Urine Nitrate Urine Bilirubin Urine Urobilinogen Ur Leukocyte Esterase Urine RBC Urine WBC Urine Bacteria Hyaline Casts Urine Mucus Micro UA Comment Ur Microscopic Review Urine Culture Comments Review/Management - Review/Management Plan: imp i dw daughter some dementia but not major gait problem [place] her plan is to bring him back [place] this weekend and she will dw his pcp about any possible nph never saw neuro [place] so we will sign off
[2018-07-14 07:15] LABS: Baso % (Auto) 1.1 % (0.0-2.0); Eos % (Auto) 0.9 % (0.0-4.0); Hematocrit 41.3 % (39.0-51.0); Lymph # (Auto) 0.5 th/mm3 (1.0-4.8); Lymph % (Auto) 12.9 % (9.0-44.0); Mean Corpuscular HGB Conc 31.5 % (32.0-36.0); Mean Corpuscular Hemoglobin 25.3 pg (27.0-34.0); Mean Corpuscular Volume 80.5 fL (80.0-100.0); Mean Platelet Volume 10.5 fL (7.0-11.0); Mono # (Auto) 0.4 th/mm3 (0.0-0.9); Mono % (Auto) 9.2 % (0.0-8.0); Neut # (Auto) 3.2 th/mm3 (1.8-7.7); Neut % (Auto) 75.9 % (16.0-70.0); Platelet Count 167 th/mm3 (150-450); Red Blood Count 5.12 mil/mm3 (4.50-5.90); Red Cell Distribution Width 17.4 % (11.6-17.2); White Blood Count 4.2 th/mm3 (4.0-11.0)
[2018-07-14 07:57] LABS: Carbon Dioxide 21.2 meq/L (21.0-32.0); Potassium 4.4 meq/L (3.5-5.1)
[2018-07-14 08:09] LABS: Ovalocytes 1+
[2018-07-14] MEDS: Ferrous Sulfate 325 MG Tablet PO SCH (09:37)
--- NOTE | 2018-07-14 14:52 | MG ---
cc: Adilson Bourgeois MD, PhD TEST NUMBER: [id number] TECHNIQUE: A 17-channel EEG. DESCRIPTION: The background rhythm reveals initially a mild slowing in the theta range, roughly 6 Hz, amplitude 10-20 microvolts. This is maintained throughout the tracing. Later in the tracing there is an alpha rhythm. No lateralizing features are seen. No epileptiform discharges. Photic results in a moderate driving response. INTERPRETATION: Probably normal electroencephalogram. The slowing is probably related to drowsiness. Adilson Bourgeois MD, PhD LELO/ , 02:42 PM , 02:47 PM
[2018-07-14] MEDS ORDERED: Polyethylene Glycol 3350 17 GM Packet PO PRN (16:00)
--- NOTE | 2018-07-14 16:00 | P.PNIM ---
Subjective Interval history: The history is limited due to the patient's current condition and mentation. Most of the history obtained from the EMR, the patient's cousin at bedside. He is a 78-year-old male with a history of diabetes and end-stage CHF who presented to the emergency room from hospice. The patient was on hospice in [place]. There was in agreement with hospice down here. The patient arrived a couple of days ago to visit with family. He has been very tired and apparently fell multiple times at home. Lower extremity edema has been getting worse. He was eventually taken to the hospice care center. He reportedly became combative and confused overnight and was given Haldol and Ativan. When the patient's family were contacted today, they indicated that he was a full code and they wanted aggressive measures. Patient is reportedly on hospice for end- stage CHF. The patient's daughter is reportedly flying into town later today from [place] to further direct the patient's care. Patient himself briefly wakes up to stimulation but quickly falls back asleep. Not really interacting. 07-14 MORE ALERT TODAY STILL A FULL CODE NOT READY FOR A DNR FOLLOWED SOME COMMANDS STATED "LEAVE ME ALONE" BUT DID FOLLOW ALL MY COMMAND AM LABS Physical Exam Vital signs: Vital Signs 07/13/18 16:00 07/13/18 16:04 07/13/18 17:20 Temperature Pulse Rate 61 Respiratory Rate 16 18 Blood Pressure 140/84 Pulse Oximetry 98 99 07/13/18 17:23 07/13/18 20:00 07/13/18 23:58 Temperature 97.2 F L 97.4 F L Pulse Rate 65 66 64 Respiratory Rate 18 18 Blood Pressure 134/89 131/81 Pulse Oximetry 100 100 07/14/18 03:50 07/14/18 08:00 07/14/18 12:00 Temperature 97.7 F 97.6 F 98.6 F Pulse Rate 62 60 60 Respiratory Rate 20 20 20 Blood Pressure 139/80 135/79 123/84 Pulse Oximetry 100 99 97 Intake & Output 07/13/18 07/14/18 07/14/18 18:59 06:59 18:59 Intake Total 500 / 500 Balance 500 / 500 Weight 94.347 kg Intake: IV 500 / 500 NS Inj 500 ML @ 70 mls/hr IV. 500 / 500 CONT .Q7H9M DONG Rx#:[id number] Other: # Voids 2 Narrative: GENERAL: AWAKE ALERT TALKATIVE NOT SO COOPERATIVE -"LEAVE ME ALONE" SKIN: Warm and dry. HEAD: Atraumatic. Normocephalic. EYES: Pupils equal and round. No scleral icterus. No injection or drainage. ENT: No nasal bleeding or discharge. Mucous membranes pink and moist. NECK: Trachea midline. No JVD. CARDIOVASCULAR: Regular rate and rhythm. RESPIRATORY: No accessory muscle use. Clear to auscultation. Breath sounds equal bilaterally. GASTROINTESTINAL: Abdomen soft, non-tender, nondistended. Hepatic and splenic margins not palpable. MUSCULOSKELETAL: Extremities without clubbing, cyanosis, or edema. No obvious deformities. +1 TO 2 LE EDE[place] NEUROLOGICAL: Awake and alert. No obvious cranial nerve deficits. Motor grossly within normal limits. Five out of 5 muscle strength in the arms and legs. Normal speech. PSYCHIATRIC: INAppropriate mood and affect; insight and judgment ABnormal. Results - Labs CBC & Chem 7: 07/14/18 06:49 07/14/18 06:49 Laboratory Results - last 24 hr 07/13/18 07/13/18 07/13/18 15:04 17:30 17:35 WBC RBC Hgb Hct MCV MCH MCHC RDW Plt Count MPV Prelim Diff (Auto) Neut % (Auto) Lymph % (Auto) [place] % (Auto) Eos % (Auto) Baso % (Auto) Neut # (Auto) Lymph # (Auto) [place] # (Auto) Eos # (Auto) Baso # (Auto) WBC Differential Diff Scan Differential Comment Ovalocytes ESR Puncture Site Right radial Patient Temperature 98.6 O2 Saturation 96 ABG pH 7.46 H ABG pCO2 29 L ABG pO2 102 ABG HCO3 20 L ABG O2 Content 16.8 ABG Base Excess -2.9 L ABG Methemoglobin 0.5 Stephan Test Present Hemoglobin 12.4 Carboxyhemoglobin 1.6 Inspired O2 21 Critical Value No Sodium Potassium Chloride Carbon Dioxide Anion Gap BUN Creatinine Estimated GFR POC Glucose 155 H Random Glucose Calcium Ammonia Troponin I 0.32 H Vitamin B12 07/13/18 07/13/18 07/13/18 19:11 19:11 23:27 WBC RBC Hgb Hct MCV MCH MCHC RDW Plt Count MPV Prelim Diff (Auto) Neut % (Auto) Lymph % (Auto) [place] % (Auto) Eos % (Auto) Baso % (Auto) Neut # (Auto) Lymph # (Auto) [place] # (Auto) Eos # (Auto) Baso # (Auto) WBC Differential Diff Scan Differential Comment Ovalocytes ESR Puncture Site Patient Temperature O2 Saturation ABG pH ABG pCO2 ABG pO2 ABG HCO3 ABG O2 Content ABG Base Excess ABG Methemoglobin Stephan Test Hemoglobin Carboxyhemoglobin Inspired O2 Critical Value Sodium 139 Potassium 4.5 D Chloride 104 Carbon Dioxide 17.9 L Anion Gap 17 H BUN 57 H Creatinine 2.45 H Estimated GFR 31 L POC Glucose 132 H Random Glucose 157 H Calcium 8.9 Ammonia Troponin I 0.30 H Vitamin B12 1832 H 07/14/18 07/14/18 07/14/18 06:49 06:49 06:49 WBC 4.2 RBC 5.12 Hgb 13.0 Hct 41.3 MCV 80.5 MCH 25.3 L MCHC 31.5 L RDW 17.4 H Plt Count 167 MPV 10.5 Prelim Diff (Auto) Slide review pending Neut % (Auto) 75.9 H Lymph % (Auto) 12.9 [place] % (Auto) 9.2 H Eos % (Auto) 0.9 Baso % (Auto) 1.1 Neut # (Auto) 3.2 Lymph # (Auto) 0.5 L [place] # (Auto) 0.4 Eos # (Auto) 0.0 Baso # (Auto) 0.0 WBC Differential . Diff Scan Auto diff confirmed Differential Comment . Ovalocytes 1+ H ESR 3 Puncture Site Patient Temperature O2 Saturation ABG pH ABG pCO2 ABG pO2 ABG HCO3 ABG O2 Content ABG Base Excess ABG Methemoglobin Stephan Test Hemoglobin Carboxyhemoglobin Inspired O2 Critical Value Sodium Potassium Chloride Carbon Dioxide Anion Gap BUN Creatinine Estimated GFR POC Glucose Random Glucose Calcium Ammonia 29 Troponin I Vitamin B12 07/14/18 07/14/18 06:49 10:30 WBC RBC Hgb Hct MCV MCH MCHC RDW Plt Count MPV Prelim Diff (Auto) Neut % (Auto) Lymph % (Auto) [place] % (Auto) Eos % (Auto) Baso % (Auto) Neut # (Auto) Lymph # (Auto) [place] # (Auto) Eos # (Auto) Baso # (Auto) WBC Differential Diff Scan Differential Comment Ovalocytes ESR Puncture Site Patient Temperature O2 Saturation ABG pH ABG pCO2 ABG pO2 ABG HCO3 ABG O2 Content ABG Base Excess ABG Methemoglobin Stephan Test Hemoglobin Carboxyhemoglobin Inspired O2 Critical Value Sodium 141 Potassium 4.4 Chloride 104 Carbon Dioxide 21.2 Anion Gap 16 H BUN 55 H Creatinine 2.58 H Estimated GFR 29 L POC Glucose 160 H Random Glucose 174 H Calcium 9.0 Ammonia Troponin I Vitamin B12 - Imaging Chest X-Ray 07/13/18 10:36 CONCLUSION: Cardiomegaly. No acute pulmonary disease. Head CT 07/13/18 10:36 CONCLUSION: 1. Diffuse ventriculomegaly that is out of proportion to degree of atrophy. Clinical correlation for normal pressure hydrocephalus is recommended. 2. Otherwise, no acute intracranial abnormality. . - Procedures NONE Assessment and Plan - Assessment (1) Acute encephalopathy Code(s): G93.40 - Encephalopathy, unspecified Status: Acute (2) Diabetes Code(s): E11.9 - Type 2 diabetes mellitus without complications Status: Acute (3) CHF (congestive heart failure) Code(s): I50.9 - Heart failure, unspecified Status: Acute (4) Delirium due to general medical condition Code(s): F05 - Delirium due to known physiological condition Status: Acute (5) Elevated troponin Code(s): R74.8 - Abnormal levels of other serum enzymes Status: Acute (6) Acute kidney injury Code(s): N17.9 - Acute kidney failure, unspecified Status: Acute - Plan 78-year-old male who reportedly was on hospice and has been falling more and more recently. The patient was initially had hospice care center and was transferred to the hospital when his family requested aggressive care. Acute encephalopathy: There was reported falls and then some episodes of combativeness. Patient subsequently was given Haldol and Ativan when he moves mental status deteriorated. - Head CT revealed Diffuse ventriculomegaly that is out of proportion to degree of atrophy. Clinical correlation for normal pressure hydrocephalus is recommended. Otherwise no acute intracranial abnormality. - Will continue with neuro checks. - Consult neurology for assistance- EEG STABLE - Suspect Haldol and Ativan contributing to sedated state. -IMPROVED OFF IT -The patient's daughter later arrived. I discussed the case with her. For now they want full aggressive care including resuscitation if needed. However she states she does not want him to be on sedated medication that she will assist with redirecting him if he becomes confused. -Consult palliative care to assist with goals of care.-STILL FULL CODE History of CHF: No evidence of pulmonary volume overload for now. However he does have LE pitting edema. Given mental status and renal function, hold diuretics for now. - Continue to monitor. -Patient was on hospice for end-stage CHF. Diabetes: - Hold oral hypoglycemic agents. Sliding scale insulin with Accu-Cheks. Acute versus chronic renal failure: - His baseline is unknown and the patient has been on hospice. - Since he is not eating, will give him a total of 500 cc normal saline. - Repeat a BMP later today. Elevated troponin: - Suspect this is likely secondary to renal failure. - Follow-up serial troponin. RENAL FAILURE AM LABS DW RN AND PT AND PALLIATIVE CARE Code Status: FULL CODE Discussed Condition With: RN AND PT AND CM AND PALLIATIVE Discharge Planning: PENDING IMPROVEMENT
--- NOTE | 2018-07-14 17:47 | P.CONPAL ---
Consult Service: Palliative Care Requesting Physician: Vick Khan Reason for Consult: a. To assist with evaluation and management of symptoms including: lethargy. b. To assist medical decision maker(s) with: better understanding of current medical conditions; weighing benefits/burdens of medical treatment options; making medical treatment decisions. Primary Care Provider: UNKNOWN History of Present Illness History of Present Illness: Mr. Herrera is a 78 year old male with past medical history of diabetes, hypertension, CKD stage 3, end stage CHF, dementia and prior stroke. Reportedly on hospice in [place] for ES CHF and stroke related decline. Family reports prior to admission he ambulated with cane or used WC, was able ot carry on a conversation and traveled to [place] via auto train with his cousin. He was here on vacation from [facility] with a cousin when he became lethargic and fell a few times in the hotel room. Family contacted [facility] hospice and he was placed in a care center for respite. His condition worsened (agitation, apnea and hypoxia) while in the care center for respite and he was transferred to [facility] ER per family request. Goals remained aggressive including FULL CODE. Upon arrival to the emergency department he was found to have elevated creatinine 2.27, potassium 5.4. 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 Dr. Lucio, neurology was consulted with recommendation to hold sedation and likely underlying dementia. Neuro has since signed off. DaughterNan (reported HCS/ POA) hopes for patient to return home this weekend. She was considering transfer back to hosp[facility] care center [facility] before taking him back to [place] via private vehicle. She desires continued aggressive care including FULL CODE. If his condition declines she would want to bring him back to the hospital in the meantime. It does not appear goals are hospice appropriate at this time. DaughterNan would like to speak with his sister najma. Will ask hospice to see again on 07/15/18 to determine if goals are comfort oriented. Dr. Khan notified. Function/Cognitive Trajectory: See HPI. PMF - History History Provided By: Medical Record, Coding Educator / EMT - Medical History Medical History: Medical History (Last Updated 07/14/18 @ 22:29 by Yanet Holliday) Amyloidosis CHF (congestive heart failure) Chronic kidney disease (CKD) Dementia Diabetes Heart failure Pacemaker - Surgical History Surgical History: Surgical History (Last Updated 07/14/18 @ 22:29 by Yanet Holliday) Pacemaker (Chronic) - Family History Family History: Family History (Last Updated 07/13/18 @ 17:04 by Shashank Velazquez MD) Other Family history non-contributory - Tobacco History Smoking Status: Unknown if ever smoked - Alcohol History How Often Do You Have a Drink Containing Alcohol: Unable to Obtain - Substance Use History Substance History: No History of Abuse - Travel History Recent Travel in the [place] Within the Last 8 Weeks: Yes Recent Travel Out of the Country Within the Last 8 Weeks: No - Immunization History Tetanus Immunization: Unsure Hx Influenza Vaccine This Season: Yes Medications and Allergies Active Medications: Active Medications Al Hydroxide/Mg Hydroxide (Milk Of Magnesia Liq) 30 ml PO Q12H PRN PRN Reason: Mild Constipation Apixaban (Eliquis) 5 mg PO BID [facility] Aspirin (Aspirin Chew) 81 mg PO DAILY [facility] Bisacodyl (Dulcolax Supp) 10 mg RECTAL DAILY PRN PRN Reason: SEVERE CONSITIPATION Ferrous Sulfate (Ferosul) 325 mg PO DAILY [facility] Last Admin: 07/14/18 09:37 Dose: 325 mg Lactulose (Lactulose Liq) 30 ml PO DAILY PRN PRN Reason: SEVERE CONSITIPATION Metolazone (Zaroxolyn) 2.5 mg PO MoWeFr [facility] Polyethylene Glycol (Miralax) 17 gm PO DAILY PRN PRN Reason: Constipation Sennosides (Senokot) 17.2 mg PO Q12H PRN PRN Reason: Moderate Constipation Sennosides (Senokot) 8.6 mg PO BID PRN PRN Reason: Constipation Sodium Chloride (Ns Flush) 2 ml IV.FLUSH PRN PRN PRN Reason: FLUSH AFTER USING IV ACCESS Torsemide (Demadex) 20 mg PO DAILY [facility] Allergies Allergy/AdvReac Type Severity Reaction Status Date / Time No Known Allergies Allergy Unverified 07/13/18 10:15 Home Medications Medication Instructions Recorded Confirmed Type apixaban [Eliquis] 5 mg PO BID 07/13/18 07/13/18 History aspirin 81 mg PO DAILY 07/13/18 07/13/18 History ferrous sulfate [FeroSul] 325 mg PO DAILY 07/13/18 07/13/18 History glipizide 10 mg PO BID 07/13/18 07/13/18 History insulin NPH and regular human 5 unit SUB-Q HS 07/13/18 07/13/18 History [Humulin 70/30 U-100 Insulin] insulin NPH and regular human 10 units SUB-Q AC BREAKFAST 07/13/18 07/13/18 History [Humulin 70/30 U-100 Insulin] metolazone 2.5 mg PO 3XW 07/13/18 07/13/18 History morphine concentrate 5 mg SUBLINGUAL Q2H PRN 07/13/18 07/13/18 History polyethylene glycol 3350 [Miralax] 17 gm PO DAILY PRN 07/13/18 07/13/18 History sennosides [Senokot] 8.6 mg PO BID PRN 07/13/18 07/13/18 History torsemide 20 mg PO DAILY 07/13/18 07/13/18 History tramadol [Ultram] 50 mg PO Q6H PRN 07/13/18 07/13/18 History Advance Directives Healthcare Surrogate: Yes Health Care Surrogate Name and Number: ya Watkins Power of Forge Helper: Yes Power of Forge Helper Name: Nan Herrera Power of Forge Helper Relationship to Patient: Children Today's verbally stated goals: Patient is not capacitated to make his own health care decisions, does not appear he will regain capacity. Family/friends goals: Nan Pandya at bedside desires FULL CODE and continued aggressive care. Will speak with family before making any additional decisions. Physical Exam Vital Signs: Vital Signs - 24 hr 07/13/18 20:00 07/13/18 23:58 07/14/18 03:50 Temperature 97.2 F L 97.4 F L 97.7 F Pulse Rate 66 64 62 Respiratory Rate 18 18 20 Blood Pressure 134/89 131/81 139/80 Pulse Oximetry 100 100 100 07/14/18 08:00 07/14/18 12:00 07/14/18 16:00 Temperature 97.6 F 98.6 F 97.4 F L Pulse Rate 60 60 60 Respiratory Rate 20 20 18 Blood Pressure 135/79 123/84 123/82 Pulse Oximetry 99 97 98 I&O: Intake & Output 07/12/18 07/13/18 07/14/18 07/15/18 06:59 06:59 06:59 06:59 Intake Total 500 / 500 Balance 500 / 500 Weight 94.347 kg Physical Exam: CONSTITUTIONAL/GENERAL: This is an elderly, lethargic, adequately nourished patient, in no apparent distress. TUBES/LINES/DRAINS: PIV. SKIN: No jaundice, rashes, or lesions. Ecchymoses on upper extremities. No wounds seen anteriorly. Skin temperature appropriate. Not diaphoretic. HEAD: Atraumatic. Normocephalic. EYES: Pupils equal and round and reactive. ENT: Hearing appears grossly normal. Nose without bleeding or purulent drainage. Mouth closed. NECK: Trachea midline. CARDIOVASCULAR: Regular rate and paced rhythm. RESPIRATORY/CHEST: Symmetric, unlabored respirations. Clear to auscultation. GASTROINTESTINAL: Abdomen soft, non-tender, nondistended. No guarding. Bowel sounds present. GENITOURINARY: Without palpable bladder distension. MUSCULOSKELETAL: Extremities without clubbing, cyanosis, or edema. No mottling or clubbing. LYMPHATICS: Not examined. NEUROLOGICAL: Awakens briefly, falls off to sleep. Lethargic. Does not follow commands. Does not answer questions. Moves all extremities. PSYCHIATRIC: Lethargic. Diagnostic Tests Laboratory: Laboratory Results - last 72 hr 07/13/18 07/13/18 07/13/18 10:47 11:31 11:31 WBC 5.2 RBC 5.38 Hgb 14.2 Hct 42.9 MCV 79.7 L MCH 26.4 L MCHC 33.1 RDW 17.6 H Plt Count 152 MPV 10.7 Prelim Diff (Auto) Neut % (Auto) 52.7 Lymph % (Auto) 29.4 [place] % (Auto) 15.0 H Eos % (Auto) 1.8 Baso % (Auto) 1.1 Neut # (Auto) 2.7 Lymph # (Auto) 1.5 [place] # (Auto) 0.8 Eos # (Auto) 0.1 Baso # (Auto) 0.1 WBC Differential . Diff Scan Differential Comment Auto diff final Ovalocytes ESR Puncture Site Patient Temperature O2 Saturation ABG pH ABG pCO2 ABG pO2 ABG HCO3 ABG O2 Content ABG Base Excess ABG Methemoglobin Stephan Test Hemoglobin Carboxyhemoglobin Inspired O2 Critical Value Sodium 135 L Potassium 5.4 H Chloride 104 Carbon Dioxide 20.9 L Anion Gap 10 BUN 49 H Creatinine 2.27 H Estimated GFR 34 L POC Glucose Random Glucose 173 H Calcium 8.5 Total Bilirubin 1.3 H AST 41 H ALT 25 Alkaline Phosphatase 129 H Ammonia 35 H Total Creatine Kinase 216 Troponin I 0.36 H Total Protein 7.1 Albumin 3.2 L Vitamin B12 TSH 11.600 H Free T4 Free T3 Urine Color Urine Clarity Urine pH Ur Specific [place] Urine Protein Urine Glucose (UA) Urine Ketones Urine Occult Blood Urine Nitrate Urine Bilirubin Urine Urobilinogen Ur Leukocyte Esterase Urine RBC Urine WBC Urine Bacteria Hyaline Casts Urine Mucus Micro UA Comment Ur Microscopic Review Urine Culture Comments 07/13/18 07/13/18 07/13/18 11:31 11:45 15:04 WBC RBC Hgb Hct MCV MCH MCHC RDW Plt Count MPV Prelim Diff (Auto) Neut % (Auto) Lymph % (Auto) [place] % (Auto) Eos % (Auto) Baso % (Auto) Neut # (Auto) Lymph # (Auto) [place] # (Auto) Eos # (Auto) Baso # (Auto) WBC Differential Diff Scan Differential Comment Ovalocytes ESR Puncture Site Patient Temperature O2 Saturation ABG pH ABG pCO2 ABG pO2 ABG HCO3 ABG O2 Content ABG Base Excess ABG Methemoglobin Stephan Test Hemoglobin Carboxyhemoglobin Inspired O2 Critical Value Sodium Potassium Chloride Carbon Dioxide Anion Gap BUN Creatinine Estimated GFR POC Glucose Random Glucose Calcium Total Bilirubin AST ALT Alkaline Phosphatase Ammonia Total Creatine Kinase Troponin I 0.32 H Total Protein Albumin Vitamin B12 TSH Free T4 1.26 Free T3 2.56 Urine Color Yellow Urine Clarity Hazy H Urine pH 5.0 Ur Specific [place] 1.012 Urine Protein 30 H Urine Glucose (UA) Negative Urine Ketones Negative Urine Occult Blood Small H Urine Nitrate Negative Urine Bilirubin Negative Urine Urobilinogen Less than 2 Ur Leukocyte Esterase Negative Urine RBC 1 Urine WBC 1 Urine Bacteria Rare H Hyaline Casts 1 Urine Mucus Few H Micro UA Comment Culture not ind Ur Microscopic Review Not Reportable Urine Culture Comments Culture not ind 07/13/18 07/13/18 07/13/18 17:30 17:35 19:11 WBC RBC Hgb Hct MCV MCH MCHC RDW Plt Count MPV Prelim Diff (Auto) Neut % (Auto) Lymph % (Auto) [place] % (Auto) Eos % (Auto) Baso % (Auto) Neut # (Auto) Lymph # (Auto) [place] # (Auto) Eos # (Auto) Baso # (Auto) WBC Differential Diff Scan Differential Comment Ovalocytes ESR Puncture Site Right radial Patient Temperature 98.6 O2 Saturation 96 ABG pH 7.46 H ABG pCO2 29 L ABG pO2 102 ABG HCO3 20 L ABG O2 Content 16.8 ABG Base Excess -2.9 L ABG Methemoglobin 0.5 Stephan Test Present Hemoglobin 12.4 Carboxyhemoglobin 1.6 Inspired O2 21 Critical Value No Sodium 139 Potassium 4.5 D Chloride 104 Carbon Dioxide 17.9 L Anion Gap 17 H BUN 57 H Creatinine 2.45 H Estimated GFR 31 L POC Glucose 155 H Random Glucose 157 H Calcium 8.9 Total Bilirubin AST ALT Alkaline Phosphatase Ammonia Total Creatine Kinase Troponin I 0.30 H Total Protein Albumin Vitamin B12 TSH Free T4 Free T3 Urine Color Urine Clarity Urine pH Ur Specific [place] Urine Protein Urine Glucose (UA) Urine Ketones Urine Occult Blood Urine Nitrate Urine Bilirubin Urine Urobilinogen Ur Leukocyte Esterase Urine RBC Urine WBC Urine Bacteria Hyaline Casts Urine Mucus Micro UA Comment Ur Microscopic Review Urine Culture Comments 07/13/18 07/13/18 07/14/18 19:11 23:27 06:49 WBC RBC Hgb Hct MCV MCH MCHC RDW Plt Count MPV Prelim Diff (Auto) Neut % (Auto) Lymph % (Auto) [place] % (Auto) Eos % (Auto) Baso % (Auto) Neut # (Auto) Lymph # (Auto) [place] # (Auto) Eos # (Auto) Baso # (Auto) WBC Differential Diff Scan Differential Comment Ovalocytes ESR 3 Puncture Site Patient Temperature O2 Saturation ABG pH ABG pCO2 ABG pO2 ABG HCO3 ABG O2 Content ABG Base Excess ABG Methemoglobin Stephan Test Hemoglobin Carboxyhemoglobin Inspired O2 Critical Value Sodium Potassium Chloride Carbon Dioxide Anion Gap BUN Creatinine Estimated GFR POC Glucose 132 H Random Glucose Calcium Total Bilirubin AST ALT Alkaline Phosphatase Ammonia Total Creatine Kinase Troponin I Total Protein Albumin Vitamin B12 1832 H TSH Free T4 Free T3 Urine Color Urine Clarity Urine pH Ur Specific [place] Urine Protein Urine Glucose (UA) Urine Ketones Urine Occult Blood Urine Nitrate Urine Bilirubin Urine Urobilinogen Ur Leukocyte Esterase Urine RBC Urine WBC Urine Bacteria Hyaline Casts Urine Mucus Micro UA Comment Ur Microscopic Review Urine Culture Comments 07/14/18 07/14/18 07/14/18 06:49 06:49 06:49 WBC 4.2 RBC 5.12 Hgb 13.0 Hct 41.3 MCV 80.5 MCH 25.3 L MCHC 31.5 L RDW 17.4 H Plt Count 167 MPV 10.5 Prelim Diff (Auto) Slide review pending Neut % (Auto) 75.9 H Lymph % (Auto) 12.9 [place] % (Auto) 9.2 H Eos % (Auto) 0.9 Baso % (Auto) 1.1 Neut # (Auto) 3.2 Lymph # (Auto) 0.5 L [place] # (Auto) 0.4 Eos # (Auto) 0.0 Baso # (Auto) 0.0 WBC Differential . Diff Scan Auto diff confirmed Differential Comment . Ovalocytes 1+ H ESR Puncture Site Patient Temperature O2 Saturation ABG pH ABG pCO2 ABG pO2 ABG HCO3 ABG O2 Content ABG Base Excess ABG Methemoglobin Stephan Test Hemoglobin Carboxyhemoglobin Inspired O2 Critical Value Sodium 141 Potassium 4.4 Chloride 104 Carbon Dioxide 21.2 Anion Gap 16 H BUN 55 H Creatinine 2.58 H Estimated GFR 29 L POC Glucose Random Glucose 174 H Calcium 9.0 Total Bilirubin AST ALT Alkaline Phosphatase Ammonia 29 Total Creatine Kinase Troponin I Total Protein Albumin Vitamin B12 TSH Free T4 Free T3 Urine Color Urine Clarity Urine pH Ur Specific [place] Urine Protein Urine Glucose (UA) Urine Ketones Urine Occult Blood Urine Nitrate Urine Bilirubin Urine Urobilinogen Ur Leukocyte Esterase Urine RBC Urine WBC Urine Bacteria Hyaline Casts Urine Mucus Micro UA Comment Ur Microscopic Review Urine Culture Comments 07/14/18 10:30 WBC RBC Hgb Hct MCV MCH MCHC RDW Plt Count MPV Prelim Diff (Auto) Neut % (Auto) Lymph % (Auto) [place] % (Auto) Eos % (Auto) Baso % (Auto) Neut # (Auto) Lymph # (Auto) [place] # (Auto) Eos # (Auto) Baso # (Auto) WBC Differential Diff Scan Differential Comment Ovalocytes ESR Puncture Site Patient Temperature O2 Saturation ABG pH ABG pCO2 ABG pO2 ABG HCO3 ABG O2 Content ABG Base Excess ABG Methemoglobin Stephan Test Hemoglobin Carboxyhemoglobin Inspired O2 Critical Value Sodium Potassium Chloride Carbon Dioxide Anion Gap BUN Creatinine Estimated GFR POC Glucose 160 H Random Glucose Calcium Total Bilirubin AST ALT Alkaline Phosphatase Ammonia Total Creatine Kinase Troponin I Total Protein Albumin Vitamin B12 TSH Free T4 Free T3 Urine Color Urine Clarity Urine pH Ur Specific [place] Urine Protein Urine Glucose (UA) Urine Ketones Urine Occult Blood Urine Nitrate Urine Bilirubin Urine Urobilinogen Ur Leukocyte Esterase Urine RBC Urine WBC Urine Bacteria Hyaline Casts Urine Mucus Micro UA Comment Ur Microscopic Review Urine Culture Comments Result Diagrams: 07/14/18 06:49 07/14/18 06:49 Imaging: Chest X-Ray 07/13/18 10:36 CONCLUSION: Cardiomegaly. No acute pulmonary disease. Head CT 07/13/18 10:36 CONCLUSION: 1. Diffuse ventriculomegaly that is out of proportion to degree of atrophy. Clinical correlation for normal pressure hydrocephalus is recommended. 2. Otherwise, no acute intracranial abnormality. . Patient/Family Conference Present at Family Conference: Met with Nan pandya at bedside. Family Conference Time: 60 Family Conference Location: Bedside Issues Discussed: * Palliative care role, purpose, approach * Additional medical, psychosocial, and spiritual history * Patients general health, functional status, and cognitive changes in the months leading up to the current hospitalization * Patient/family understanding of the current medical problems * Patient/family understanding of prognosis * Patients goals of care as best understood from advance directives and/or conversations and/or values * Current medical treatment options and benefits/burdens of those options * Likely scenarios comparing ongoing aggressive care with a transition to comfort measures only * Questions answered to the best of my ability * Palliative care contact information provided Assessment and Plan - Disease Oriented Problem List (1) Delirium due to general medical condition (2) Altered mental status (3) Elevated troponin (4) Acute kidney injury (5) Acute encephalopathy (6) Diabetes (7) CHF (congestive heart failure) - Symptom Scale (1) Lethargy 0-10 Scale: Unable to quantify Pertinent Non-Medical Issues: Psychosocial: a few months ago. Has 2 daughters. Lives with Nan pandya in [place]. Spiritual: Unknown. Legal: Patient is not capacitated to make his own health care decisions, will not likely regain capacity. Nan Panyda is reported HCS/POA. Ethical issues impacting care: No known concerns at this time. Important Contacts: * ya Watkins/ POA/[facility]: [phone] Prognosis: Mr. Herrera is a 78 year old male with dementia, ES CHF, CKD and recent decline. Appears hospice appropriate if goals are comfort oriented. Code Status: Full Code Plan: * Patient is not capacitated to make his own health care decisions. Nan Pandya is reported POA/health care surrogate. * FULL CODE * Goals remain aggressive. While daughter verbalizes desire for hospice services , she would like FULL CODE. She hopes for him to return to [place] in the coming days. If he goes to the hospice care center and declines she will transfer him back to the hospital. She is going to speak with her sister najma. She requests hospice follow up 07/15/18 to see if they have changed their mind regarding code status and goals of medical treatment. * Discussed with nursing staff and Dr. Khan. * SYMPTOMS: Lethargy: likely multifactorial including dementia, possible NPH, CKD, decline, medications. Daughter reports patient is at baseline currently, remains lethargic and not interacting. Recommend avoiding sedatives. Daughter DOES NOT want any sedative including Haldol or Ativan given. * Palliative care number provided, will continue to follow to assist with symptom management and clarification of medical treatment goals as needed. Appreciation Thank you for the opportunity to participate in the care of Yousuf Herrera. Attestation Attestation: To help prompt me to consider important information that might be impacting today's encounter and assessment, information from prior notes written by myself or my colleagues may have been "brought forward" into today's note. My signature on this note, however, is an attestation that I personally performed the exam, history, and/or decision-making noted today, and, unless otherwise indicated, the interactions with patient, family, and staff as well as the review of records all occurred today. I also attest that the listed assessment and stated plan reflect my best clinical judgment today based on the combination of historical information, prior notes, and today's exam/ interactions. When time spent is documented, it refers only to time spent today by the signer, or if indicated, combined time spent today by collaborating physician/nurse practitioner.
[2018-07-14] MEDS: Torsemide 20 MG Tablet PO SCH (19:58)
[2018-07-14] MEDS ORDERED: Dextrose 50% in Water 50 ML Vial IV.PUSH PRN (21:09)
[2018-07-15 08:32] LABS: Baso % (Auto) 0.8 % (0.0-2.0); Eos # (Auto) 0.1 th/mm3 (0.0-0.4); Eos % (Auto) 1.3 % (0.0-4.0); Hemoglobin 13.2 gm/dL (13.0-17.0); Lymph # (Auto) 0.8 th/mm3 (1.0-4.8); Lymph % (Auto) 17.6 % (9.0-44.0); Mean Corpuscular HGB Conc 31.4 % (32.0-36.0); Mean Corpuscular Hemoglobin 25.4 pg (27.0-34.0); Mean Corpuscular Volume 80.9 fL (80.0-100.0); Mean Platelet Volume 10.9 fL (7.0-11.0); Mono # (Auto) 0.5 th/mm3 (0.0-0.9); Mono % (Auto) 10.5 % (0.0-8.0); Neut # (Auto) 3.2 th/mm3 (1.8-7.7); Neut % (Auto) 69.8 % (16.0-70.0); Platelet Count 161 th/mm3 (150-450); Red Blood Count 5.19 mil/mm3 (4.50-5.90); White Blood Count 4.6 th/mm3 (4.0-11.0)
[2018-07-15 08:39] LABS: INR 1.9 Ratio
[2018-07-15 08:56] LABS: Alanine Aminotransferase 26 U/L (12-78); Albumin 3.4 g/dL (3.4-5.0); Anion Gap 18 meq/L (5-15); Aspartate Aminotransferase 27 U/L (15-37); Blood Urea Nitrogen 60 mg/dL (7-18); Calcium 8.7 mg/dL (8.5-10.1); Carbon Dioxide 18.2 meq/L (21.0-32.0); Chloride 102 meq/L (98-107); Glomerular Filtration Rate 27 mL/min (>89); Glucose,Random 158 mg/dL (74-106); Magnesium 2.8 mg/dL (1.5-2.5); Phosphorus 4.3 mg/dL (2.5-4.9); Potassium 4.8 meq/L (3.5-5.1); Sodium 138 meq/L (136-145)
[2018-07-15 09:04] LABS: Alkaline Phosphatase 124 U/L (45-117); Free T4 (Free Thyroxine) 1.38 ng/dL (0.76-1.46); Total Protein 7.5 g/dL (6.4-8.2)
[2018-07-15] MEDS: Insulin NovoLOG Aspart Correctional Sugar Inj SQ SCH ×4 (09:09→21:16)
[2018-07-15] MEDS: Torsemide 20 MG Tablet PO SCH (09:39)
--- NOTE | 2018-07-15 09:39 | P.PNIM ---
Subjective Interval history: The history is limited due to the patient's current condition and mentation. Most of the history obtained from the EMR, the patient's cousin at bedside. He is a 78-year-old male with a history of diabetes and end-stage CHF who presented to the emergency room from hospice. The patient was on hospice in [place]. There was in agreement with hospice down here. The patient arrived a couple of days ago to visit with family. He has been very tired and apparently fell multiple times at home. Lower extremity edema has been getting worse. He was eventually taken to the hospice care center. He reportedly became combative and confused overnight and was given Haldol and Ativan. When the patient's family were contacted today, they indicated that he was a full code and they wanted aggressive measures. Patient is reportedly on hospice for end- stage CHF. The patient's daughter is reportedly flying into town later today from [place] to further direct the patient's care. Patient himself briefly wakes up to stimulation but quickly falls back asleep. Not really interacting. 07-14 MORE ALERT TODAY STILL A FULL CODE NOT READY FOR A DNR FOLLOWED SOME COMMANDS STATED "LEAVE ME ALONE" BUT DID FOLLOW ALL MY COMMAND AM LABS 9-1 NO NEW COMPLAINTS RENAL FUNCTIONS LOOK BETTER HOLD TORSEMIDE BUMEX 2MG IV Q12 AM LABS Physical Exam Vital signs: Vital Signs 07/14/18 12:00 07/14/18 16:00 07/14/18 20:00 Temperature 98.6 F 97.4 F L 97.7 F Pulse Rate 60 60 60 Respiratory Rate 20 18 18 Blood Pressure 123/84 123/82 136/77 Pulse Oximetry 97 98 100 07/14/18 23:59 07/15/18 03:59 07/15/18 07:58 Temperature 97.4 F L 97.5 F L 97.5 F L Pulse Rate 60 60 60 Respiratory Rate 18 20 25 H Blood Pressure 134/79 130/78 134/79 Pulse Oximetry 96 100 98 Intake & Output 07/14/18 07/15/18 07/15/18 18:59 06:59 18:59 Intake Total 0 / 0 Balance 0 / 0 Intake: Oral 0 / 0 Other: # Voids 6 # Incontinent Voids 1 # Urine Diapers 1 Date of Last Bowel Movement 07/12/18 07/12/18 Narrative: GENERAL: AWAKE ALERT TALKATIVE NOT SO COOPERATIVE -"LEAVE ME ALONE" SKIN: Warm and dry. HEAD: Atraumatic. Normocephalic. EYES: Pupils equal and round. No scleral icterus. No injection or drainage. ENT: No nasal bleeding or discharge. Mucous membranes pink and moist. NECK: Trachea midline. No JVD. CARDIOVASCULAR: Regular rate and rhythm. RESPIRATORY: No accessory muscle use. Clear to auscultation. Breath sounds equal bilaterally. GASTROINTESTINAL: Abdomen soft, non-tender, nondistended. Hepatic and splenic margins not palpable. MUSCULOSKELETAL: Extremities without clubbing, cyanosis, or edema. No obvious deformities. +1 TO 2 LE EDEMA NEUROLOGICAL: Awake and alert. No obvious cranial nerve deficits. Motor grossly within normal limits. Five out of 5 muscle strength in the arms and legs. Normal speech. PSYCHIATRIC: INAppropriate mood and affect; insight and judgment ABnormal. Results - Labs CBC & Chem 7: 07/15/18 07:55 07/15/18 07:55 Laboratory Results - last 24 hr 07/14/18 07/14/18 07/15/18 10:30 20:12 04:03 WBC RBC Hgb Hct MCV MCH MCHC RDW Plt Count MPV Prelim Diff (Auto) Neut % (Auto) Lymph % (Auto) [place] % (Auto) Eos % (Auto) Baso % (Auto) Neut # (Auto) Lymph # (Auto) [place] # (Auto) Eos # (Auto) Baso # (Auto) Differential Comment PT INR Sodium Potassium Chloride Carbon Dioxide Anion Gap BUN Creatinine Estimated GFR POC Glucose 160 H 179 H 189 H Random Glucose Calcium Phosphorus Magnesium Total Bilirubin AST ALT Alkaline Phosphatase B-Natriuretic Peptide Total Protein Albumin TSH Free T4 07/15/18 07/15/18 07/15/18 07:55 07:55 07:55 WBC 4.6 RBC 5.19 Hgb 13.2 Hct 42.0 MCV 80.9 MCH 25.4 L MCHC 31.4 L RDW 17.0 Plt Count 161 MPV 10.9 Prelim Diff (Auto) Slide review pending Neut % (Auto) 69.8 Lymph % (Auto) 17.6 [place] % (Auto) 10.5 H Eos % (Auto) 1.3 Baso % (Auto) 0.8 Neut # (Auto) 3.2 Lymph # (Auto) 0.8 L [place] # (Auto) 0.5 Eos # (Auto) 0.1 Baso # (Auto) 0.0 Differential Comment . PT 19.0 H INR 1.9 Sodium 138 Potassium 4.8 Chloride 102 Carbon Dioxide 18.2 L Anion Gap 18 H BUN 60 H Creatinine 2.77 H Estimated GFR 27 L POC Glucose Random Glucose 158 H Calcium 8.7 Phosphorus 4.3 Magnesium 2.8 H Total Bilirubin 1.9 H AST 27 ALT 26 Alkaline Phosphatase 124 H B-Natriuretic Peptide Total Protein 7.5 Albumin 3.4 TSH 4.680 H Free T4 1.38 07/15/18 07:55 WBC RBC Hgb Hct MCV MCH MCHC RDW Plt Count MPV Prelim Diff (Auto) Neut % (Auto) Lymph % (Auto) [place] % (Auto) Eos % (Auto) Baso % (Auto) Neut # (Auto) Lymph # (Auto) [place] # (Auto) Eos # (Auto) Baso # (Auto) Differential Comment PT INR Sodium Potassium Chloride Carbon Dioxide Anion Gap BUN Creatinine Estimated GFR POC Glucose Random Glucose Calcium Phosphorus Magnesium Total Bilirubin AST ALT Alkaline Phosphatase B-Natriuretic Peptide 2462 H Total Protein Albumin TSH Free T4 - Imaging Chest X-Ray 07/13/18 10:36 CONCLUSION: Cardiomegaly. No acute pulmonary disease. Head CT 07/13/18 10:36 CONCLUSION: 1. Diffuse ventriculomegaly that is out of proportion to degree of atrophy. Clinical correlation for normal pressure hydrocephalus is recommended. 2. Otherwise, no acute intracranial abnormality. . - Procedures NONE Assessment and Plan - Assessment (1) Acute encephalopathy Code(s): G93.40 - Encephalopathy, unspecified Status: Acute (2) Diabetes Code(s): E11.9 - Type 2 diabetes mellitus without complications Status: Acute (3) CHF (congestive heart failure) Code(s): I50.9 - Heart failure, unspecified Status: Acute (4) Delirium due to general medical condition Code(s): F05 - Delirium due to known physiological condition Status: Acute (5) Elevated troponin Code(s): R74.8 - Abnormal levels of other serum enzymes Status: Acute (6) Acute kidney injury Code(s): N17.9 - Acute kidney failure, unspecified Status: Acute - Plan 78-year-old male who reportedly was on hospice and has been falling more and more recently. The patient was initially had hospice care center and was transferred to the hospital when his family requested aggressive care. Acute encephalopathy: There was reported falls and then some episodes of combativeness. Patient subsequently was given Haldol and Ativan when he moves mental status deteriorated. - Head CT revealed Diffuse ventriculomegaly that is out of proportion to degree of atrophy. Clinical correlation for normal pressure hydrocephalus is recommended. Otherwise no acute intracranial abnormality. - Will continue with neuro checks. - Consult neurology for assistance- EEG STABLE - Suspect Haldol and Ativan contributing to sedated state. -IMPROVED OFF IT -The patient's daughter later arrived. I discussed the case with her. For now they want full aggressive care including resuscitation if needed. However she states she does not want him to be on sedated medication that she will assist with redirecting him if he becomes confused. -Consult palliative care to assist with goals of care.-STILL FULL CODE History of CHF: No evidence of pulmonary volume overload for now. However he does have LE pitting edema. Given mental status and renal function, hold diuretics for now. - Continue to monitor. -Patient was on hospice for end-stage CHF. HAS CHRONIC BL LE EDEMA Diabetes: - Hold oral hypoglycemic agents. Sliding scale insulin with Accu-Cheks. Acute versus chronic renal failure: - His baseline is unknown and the patient has been on hospice. - Since he is not eating, will give him a total of 500 cc normal saline. - Repeat a BMP later today. Elevated troponin: - Suspect this is likely secondary to renal failure. - Follow-up serial troponin. RENAL FAILURE -IMPROVED AM LABS HAS CHRONIC BL LE EDEMA DW RN AND PT AND PALLIATIVE CARE Code Status: FULL CODE Discussed Condition With: RN AND PT AND CM Discharge Planning: PENDING IMPROVEMENT
[2018-07-15] MEDS: Ferrous Sulfate 325 MG Tablet PO SCH (10:02)
[2018-07-15 10:46] LABS: Eosinophils 1 % (0-4); Lymphocytes 19 % (9-44); Monocytes 10 % (0-8); Ovalocytes 1+; Platelet Estimate Normal (Normal); Platelet Morphology Normal (Normal); Tallied Nucleated RBC 5 (0-0)
[2018-07-15 10:54] LABS: Hemoglobin A1c 10.2 % (4.3-6.0)
[2018-07-16 06:22] LABS: Baso % (Auto) 0.6 % (0.0-2.0); Eos % (Auto) 0.9 % (0.0-4.0); Hematocrit 43.6 % (39.0-51.0); Hemoglobin 13.6 gm/dL (13.0-17.0); Lymph # (Auto) 0.8 th/mm3 (1.0-4.8); Lymph % (Auto) 14.5 % (9.0-44.0); Mean Corpuscular HGB Conc 31.3 % (32.0-36.0); Mean Corpuscular Hemoglobin 25.6 pg (27.0-34.0); Mean Platelet Volume 10.9 fL (7.0-11.0); Mono # (Auto) 0.6 th/mm3 (0.0-0.9); Platelet Count 166 th/mm3 (150-450); Red Blood Count 5.32 mil/mm3 (4.50-5.90); Red Cell Distribution Width 17.8 % (11.6-17.2); White Blood Count 5.4 th/mm3 (4.0-11.0)
[2018-07-16 06:57] LABS: Alanine Aminotransferase 47 U/L (12-78); Albumin 3.6 g/dL (3.4-5.0); Alkaline Phosphatase 145 U/L (45-117); Anion Gap 16 meq/L (5-15); Aspartate Aminotransferase 54 U/L (15-37); Blood Urea Nitrogen 73 mg/dL (7-18); Calcium 8.8 mg/dL (8.5-10.1); Carbon Dioxide 18.9 meq/L (21.0-32.0); Chloride 101 meq/L (98-107); Glomerular Filtration Rate 24 mL/min (>89); Glucose,Random 214 mg/dL (74-106); Magnesium 2.7 mg/dL (1.5-2.5); Phosphorus 5.1 mg/dL (2.5-4.9); Potassium 4.7 meq/L (3.5-5.1); Sodium 136 meq/L (136-145); Total Protein 7.7 g/dL (6.4-8.2)
[2018-07-16] MEDS: Insulin NovoLOG Aspart Correctional Sugar Inj SQ SCH ×4 (07:58→21:13)
--- NOTE | 2018-07-16 08:50 | P.PNIM ---
Subjective Interval history: in no acute distress. daughter at the bedside who doesn't report any new complaints. no fever. Physical Exam Vital signs: Vital Signs 07/15/18 12:00 07/15/18 16:00 07/15/18 20:00 Temperature 98.6 F 97.7 F 98 F Pulse Rate 56 L 60 60 Respiratory Rate 28 H 18 17 Blood Pressure 135/68 134/78 131/76 Pulse Oximetry 99 99 100 07/16/18 00:00 07/16/18 04:00 Temperature 97.8 F 97.9 F Pulse Rate 64 65 Respiratory Rate 17 17 Blood Pressure 135/78 138/74 Pulse Oximetry 100 100 Intake & Output 07/15/18 07/16/18 07/16/18 18:59 06:59 18:59 Intake Total 200 / 200 Balance 200 / 200 Weight 94.6 kg Intake: Oral 200 / 200 Other: # Incontinent Voids 4 Date of Last Bowel Movement 07/12/18 # Bowel Movements 0 - Constitutional no acute distress - Routine Respiratory Exam Present: CTA bilaterally - Routine Cardiovascular Exam Present: RRR - Routine Abdominal Exam Present: soft - Routine Extremities Exam Comments: bilateral pedal edema. - Routine Neurological Exam opens the eyes to calling his name. Results - Labs CBC & Chem 7: 07/16/18 05:29 07/16/18 05:29 Laboratory Results - last 24 hr 07/15/18 07/15/18 07/15/18 07:55 07:55 07:55 WBC 4.6 RBC 5.19 Hgb 13.2 Hct 42.0 MCV 80.9 MCH 25.4 L MCHC 31.4 L RDW 17.0 Plt Count 161 MPV 10.9 Prelim Diff (Auto) Slide review pending Neut % (Auto) 69.8 Lymph % (Auto) 17.6 [place] % (Auto) 10.5 H Eos % (Auto) 1.3 Baso % (Auto) 0.8 Neut # (Auto) 3.2 Lymph # (Auto) 0.8 L [place] # (Auto) 0.5 Eos # (Auto) 0.1 Baso # (Auto) 0.0 WBC Differential Manual diff final Seg Neuts % (Manual) 69 Lymphocytes % (Manual) 19 Monocytes % (Manual) 10 H Eosinophils % (Manual) 1 Basophils % (Manual) 1 Abs Neuts (Manual) 3.2 Nucleated RBCs/100 WBC 5 H Differential Comment . Platelet Estimate Normal Platelet Morphology Normal Ovalocytes 1+ H Sodium 138 Potassium 4.8 Chloride 102 Carbon Dioxide 18.2 L Anion Gap 18 H BUN 60 H Creatinine 2.77 H Estimated GFR 27 L POC Glucose Random Glucose 158 H Hemoglobin A1c 10.2 H Calcium 8.7 Phosphorus 4.3 Magnesium 2.8 H Total Bilirubin 1.9 H AST 27 ALT 26 Alkaline Phosphatase 124 H B-Natriuretic Peptide Total Protein 7.5 Albumin 3.4 TSH 4.680 H Free T4 1.38 07/15/18 07/15/18 07/16/18 07:55 21:13 05:29 WBC 5.4 RBC 5.32 Hgb 13.6 Hct 43.6 MCV 82.0 MCH 25.6 L MCHC 31.3 L RDW 17.8 H Plt Count 166 MPV 10.9 Prelim Diff (Auto) Slide review pending Neut % (Auto) 73.0 H Lymph % (Auto) 14.5 [place] % (Auto) 11.0 H Eos % (Auto) 0.9 Baso % (Auto) 0.6 Neut # (Auto) 4.0 Lymph # (Auto) 0.8 L [place] # (Auto) 0.6 Eos # (Auto) 0.0 Baso # (Auto) 0.0 WBC Differential Seg Neuts % (Manual) Lymphocytes % (Manual) Monocytes % (Manual) Eosinophils % (Manual) Basophils % (Manual) Abs Neuts (Manual) Nucleated RBCs/100 WBC Differential Comment . Platelet Estimate Platelet Morphology Ovalocytes Sodium Potassium Chloride Carbon Dioxide Anion Gap BUN Creatinine Estimated GFR POC Glucose 193 H Random Glucose Hemoglobin A1c Calcium Phosphorus Magnesium Total Bilirubin AST ALT Alkaline Phosphatase B-Natriuretic Peptide 2462 H Total Protein Albumin TSH Free T4 07/16/18 07/16/18 07/16/18 05:29 05:29 07:28 WBC RBC Hgb Hct MCV MCH MCHC RDW Plt Count MPV Prelim Diff (Auto) Neut % (Auto) Lymph % (Auto) [place] % (Auto) Eos % (Auto) Baso % (Auto) Neut # (Auto) Lymph # (Auto) [place] # (Auto) Eos # (Auto) Baso # (Auto) WBC Differential Seg Neuts % (Manual) Lymphocytes % (Manual) Monocytes % (Manual) Eosinophils % (Manual) Basophils % (Manual) Abs Neuts (Manual) Nucleated RBCs/100 WBC Differential Comment Platelet Estimate Platelet Morphology Ovalocytes Sodium 136 Potassium 4.7 Chloride 101 Carbon Dioxide 18.9 L Anion Gap 16 H BUN 73 H Creatinine 3.08 H Estimated GFR 24 L POC Glucose 215 H Random Glucose 214 H Hemoglobin A1c Calcium 8.8 Phosphorus 5.1 H Magnesium 2.7 H Total Bilirubin 1.8 H AST 54 H ALT 47 Alkaline Phosphatase 145 H B-Natriuretic Peptide 3586 H Total Protein 7.7 Albumin 3.6 TSH Free T4 - Procedures NONE Assessment and Plan - Assessment (1) Acute encephalopathy Code(s): G93.40 - Encephalopathy, unspecified Status: Acute (2) Diabetes Code(s): E11.9 - Type 2 diabetes mellitus without complications Status: Acute (3) CHF (congestive heart failure) Code(s): I50.9 - Heart failure, unspecified Status: Acute (4) Delirium due to general medical condition Code(s): F05 - Delirium due to known physiological condition Status: Acute (5) Elevated troponin Code(s): R74.8 - Abnormal levels of other serum enzymes Status: Acute (6) Acute kidney injury Code(s): N17.9 - Acute kidney failure, unspecified Status: Acute - Plan Acute encephalopathy: There was reported falls and then some episodes of combativeness. Patient subsequently was given Haldol and Ativan when he moves mental status deteriorated. - Head CT revealed Diffuse ventriculomegaly that is out of proportion to degree of atrophy. Clinical correlation for normal pressure hydrocephalus is recommended. Otherwise no acute intracranial abnormality. - Will continue with neuro checks. - neurology signed off. -Consult palliative care to assist with goals of care.-STILL FULL CODE History of CHF: No evidence of pulmonary volume overload for now. However he does have LE pitting edema. Given mental status and renal function, hold diuretics for now. - Continue to monitor. -Patient was on hospice for end-stage CHF. Diabetes: - Hold oral hypoglycemic agents. Sliding scale insulin with Accu-Cheks. Acute versus chronic renal failure: - His baseline is unknown and the patient has been on hospice. - Since he is not eating, will start him back on IV fluid. - Repeat a BMP in am. Elevated troponin: - Suspect this is likely secondary to renal failure. Discharge Planning: dc home tomorrow. the daughter wants to take him back home tomorrow and resume the hospice service.
[2018-07-16] MEDS: Ferrous Sulfate 325 MG Tablet PO SCH (09:08)
[2018-07-16] MEDS: Sodium Chlor 0.9% Inj 500 ML IV.CONT SCH ×2 (09:12→22:05)
[2018-07-16 09:37] LABS: Blast Cells 1 % (0-0); Lymphocytes 11 % (9-44); Monocytes 12 % (0-8); Tallied Nucleated RBC 1 (0-0)
[2018-07-16 09:39] LABS: Platelet Estimate Normal (Normal)
[2018-07-16 09:43] LABS: Ovalocytes 1+
[2018-07-16 09:44] LABS: Target Cells 1+
[2018-07-16 09:45] LABS: Acanthocytes 1+
[2018-07-17] MEDS: Sodium Chlor 0.9% Inj 500 ML IV.CONT SCH (04:25)
[2018-07-17] MEDS ORDERED: Sod Chloride 0.9% Inj 1,000 ML IV.CONT SCH (04:30)
[2018-07-17] MEDS ORDERED: Sod Chloride 0.9% Inj 500 ML IV.CONT SCH (04:30)
[2018-07-17 05:10] LABS: Calcium 8.6 mg/dL (8.5-10.1); Carbon Dioxide 15.9 meq/L (21.0-32.0)
--- NOTE | 2018-07-17 08:55 | P.PNIM ---
Subjective Interval history: in no acute distress and looks comfortable. denies pain. daughter at the bedside. Physical Exam Vital signs: Vital Signs 07/16/18 12:00 07/16/18 16:00 07/16/18 20:00 Temperature 97.4 F L 97.3 F L 98.7 F Pulse Rate 60 59 L 65 Respiratory Rate 20 20 18 Blood Pressure 135/85 133/84 144/99 H Pulse Oximetry 99 99 95 07/17/18 00:00 07/17/18 04:00 Temperature 98.7 F 99.5 F Pulse Rate 60 60 Respiratory Rate 18 18 Blood Pressure 145/86 H 144/86 H Pulse Oximetry 99 100 Intake & Output 07/16/18 07/17/18 07/17/18 18:59 06:59 18:59 Intake Total 820 / 820 Balance 820 / 820 Weight 96.1 kg Intake: IV 820 / 820 NS Inj 500 ML @ 40 mls/hr IV. 820 / 820 CONT .[id number] DONG Rx#:[id number] Oral Other: # Incontinent Voids 1 # Urine Diapers 1 # Incontinent Bowel Movements 1 - Constitutional no acute distress - Routine Respiratory Exam Present: CTA bilaterally - Routine Cardiovascular Exam Present: RRR - Routine Abdominal Exam Present: soft - Routine Extremities Exam Comments: bilateral pedal edema. - Routine Neurological Exam awake. Results - Labs CBC & Chem 7: 07/16/18 05:29 07/17/18 03:40 Laboratory Results - last 24 hr 07/16/18 07/16/18 07/16/18 05:29 11:44 17:32 WBC Differential Manual diff final Seg Neuts % (Manual) 75 H Band Neuts % (Manual) 1 Lymphocytes % (Manual) 11 Monocytes % (Manual) 12 H Blast Cells % (Manual) 1 H Abs Neuts (Manual) 4.1 Nucleated RBCs/100 WBC 1 H Platelet Estimate Normal Platelet Morphology Enlarged H Target Cells 1+ H Ovalocytes 1+ H Acanthocytes (Spur) 1+ H Sodium Potassium Chloride Carbon Dioxide Anion Gap BUN Creatinine Estimated GFR POC Glucose 204 H 182 H Random Glucose Calcium 07/16/18 07/17/18 07/17/18 20:33 03:40 07:49 WBC Differential Seg Neuts % (Manual) Band Neuts % (Manual) Lymphocytes % (Manual) Monocytes % (Manual) Blast Cells % (Manual) Abs Neuts (Manual) Nucleated RBCs/100 WBC Platelet Estimate Platelet Morphology Target Cells Ovalocytes Acanthocytes (Spur) Sodium 135 L Potassium 5.0 Chloride 100 Carbon Dioxide 15.9 L Anion Gap 19 H BUN 82 H Creatinine 3.28 H Estimated GFR 22 L POC Glucose 201 H 241 H Random Glucose 236 H Calcium 8.6 - Procedures NONE Assessment and Plan - Assessment (1) Acute encephalopathy Code(s): G93.40 - Encephalopathy, unspecified Status: Acute (2) Diabetes Code(s): E11.9 - Type 2 diabetes mellitus without complications Status: Acute (3) CHF (congestive heart failure) Code(s): I50.9 - Heart failure, unspecified Status: Acute (4) Delirium due to general medical condition Code(s): F05 - Delirium due to known physiological condition Status: Acute (5) Elevated troponin Code(s): R74.8 - Abnormal levels of other serum enzymes Status: Acute (6) Acute kidney injury Code(s): N17.9 - Acute kidney failure, unspecified Status: Acute - Plan Acute encephalopathy: There was reported falls and then some episodes of combativeness. Patient subsequently was given Haldol and Ativan when he moves mental status deteriorated. - Head CT revealed Diffuse ventriculomegaly that is out of proportion to degree of atrophy. Clinical correlation for normal pressure hydrocephalus is recommended. Otherwise no acute intracranial abnormality. - Will continue with neuro checks. - neurology signed off. -Consulted palliative care to assist with goals of care.- History of CHF: No evidence of pulmonary volume overload for now. However he does have LE pitting edema. Given mental status and renal function, hold diuretics for now. - Continue to monitor. -Patient was on hospice for end-stage CHF. Diabetes: - Hold oral hypoglycemic agents. Sliding scale insulin with Accu-Cheks. Acute versus chronic renal failure- now creatinine trending up. - His baseline is unknown and the patient has been on hospice. - Since he is not eating, started him back on IV fluid. - d/w the daughter; she's planning to proceed with comfort care and with no further w/u. Elevated troponin: - Suspect this is likely secondary to renal failure. -DNR status per my d/w the daughter. Discharge Planning: the daughter wants to take him back home tomorrow and resume the hospice service. will consult [facility].
[2018-07-17] MEDS: Insulin NovoLOG Aspart Correctional Sugar Inj SQ SCH ×4 (10:24→21:12)
[2018-07-17] MEDS: Ferrous Sulfate 325 MG Tablet PO SCH (10:24)
--- NOTE | 2018-07-17 11:49 | P.PNADD ---
Addendum to Inpatient Note Reason for Addendum: Additional Documentation (d/w the hospice nurse- apparently the family changed their minds and now want to proceed with aggressive care.)
--- NOTE | 2018-07-17 13:29 | US ---
EXAM DATE: 07/17/2018 1:26 PM EDT AGE/SEX: 78 years / Male INDICATIONS: Increased lab values. CLINICAL DATA: This is the patient's initial encounter. Patient reports that signs and symptoms have been present for 4 - 6 days and indicates a pain score of 0/10. MEDICAL/SURGICAL HISTORY: Congestive heart failure. Chronic renal failure. Dementia. Amyloid osis. Diabetes. . Pacemaker placement. COMPARISON: No prior exams available for comparison. MEASUREMENTS: Right Kidney:__9.5 x 4.4 x 5.1 cm Left Kidney:__7.8 x 4.2 x 3.9 cm FINDINGS: Right Kidney: Normal echotexture and cortical thickness. No mass or hydronephrosis. Left Kidney: Normal echotexture and cortical thickness. No mass or hydronephrosis. Bladder: Within normal limits given the degree of distension. Other: Small amount of free fluid is seen in the right upper quadrant. CONCLUSION: 1. Trace free fluid. 2. Small kidneys. Electronically signed by: Brian Vogel MD 07/17/2018 1:28 PM EDT
[2018-07-17] MEDS: Sodium Bicarbonate 8.4% Inj 50 MEQ in Sodium Chloride 0.45 % Inj 950 ML IV.CONT SCH (13:56)
--- NOTE | 2018-07-18 07:41 | P.PNNEU ---
Subjective Active Medications: Active Medications Al Hydroxide/Mg Hydroxide (Milk Of Magnesia Liq) 30 ml PO Q12H PRN PRN Reason: Mild Constipation Apixaban (Eliquis) 5 mg PO BID [facility] Last Admin: 07/17/18 21:11 Dose: 5 mg Aspirin (Aspirin Chew) 81 mg PO DAILY [facility] Last Admin: 07/17/18 10:24 Dose: 81 mg Bisacodyl (Dulcolax Supp) 10 mg RECTAL DAILY PRN PRN Reason: SEVERE CONSITIPATION Bumetanide (Bumex Inj) 2 mg IV.PUSH DAILY [facility] Dextrose (D50w Vial) 50 ml IV.PUSH UNSCH PRN PRN Reason: PER HYPOGLYCEMIA PROTOCOL Ferrous Sulfate (Ferosul) 325 mg PO DAILY [facility] Last Admin: 07/17/18 10:24 Dose: 325 mg Glucagon (Glucagon Inj) 1 mg OTHER PRN PRN PRN Reason: for Hypoglycemia Protocol Sodium Bicarbonate 50 meq/ (Sodium Chloride) 1,000 mls @ 50 mls/hr IV.CONT .Q20H [facility] Last Admin: 07/17/18 13:56 Dose: 50 mls/hr Insulin Aspart (Novolog Insulin Correctional Sugar Inj) 0 unit SQ ACHS [facility]; Protocol Last Admin: 07/17/18 21:12 Dose: 3 unit Lactulose (Lactulose Liq) 30 ml PO DAILY PRN PRN Reason: SEVERE CONSITIPATION Metolazone (Zaroxolyn) 2.5 mg PO DAILY [facility] Polyethylene Glycol (Miralax) 17 gm PO DAILY PRN PRN Reason: Constipation Sennosides (Senokot) 17.2 mg PO Q12H PRN PRN Reason: Moderate Constipation Sennosides (Senokot) 8.6 mg PO BID PRN PRN Reason: Constipation Sodium Chloride (Ns Flush) 2 ml IV.FLUSH PRN PRN PRN Reason: FLUSH AFTER USING IV ACCESS Torsemide (Demadex) 20 mg PO DAILY [facility] Last Admin: 07/15/18 09:39 Dose: Not Given Allergies/Adverse Reactions: Allergies Allergy/AdvReac Type Severity Reaction Status Date / Time No Known Allergies Allergy Unverified 07/13/18 10:15 Physical Exam Vital signs: Vital Signs 07/17/18 08:00 07/17/18 12:00 07/17/18 16:00 Temperature 97.8 F 97.7 F 98.2 F Pulse Rate 60 60 60 Respiratory Rate 18 18 18 Blood Pressure 148/80 H 151/88 H 142/87 H Pulse Oximetry 100 96 99 07/17/18 20:30 07/18/18 00:30 Temperature 98 F 97.8 F Pulse Rate 62 62 Respiratory Rate 17 17 Blood Pressure 146/76 H 140/75 Pulse Oximetry 96 97 Intake & Output 07/17/18 07/18/18 07/18/18 18:59 06:59 18:59 Intake Total 1000 / 1000 0 / 0 Balance 1000 / 1000 0 / 0 Intake: IV 1000 / 1000 NS Inj 1,000 ML @ 40 mls/hr IV. 1000 / 1000 CONT .Q24H DONG Rx#:[id number] Oral 0 / 0 Other: # Incontinent Voids 2 Date of Last Bowel Movement 07/17/18 # Bowel Movements 1 # Incontinent Bowel Movements 1 0 Objective Laboratory Results - last 24 hr 07/17/18 07/17/18 07/17/18 07:49 12:15 17:22 POC Glucose 241 H 179 H 233 H 07/17/18 20:38 POC Glucose 240 H Review/Management - Review/Management Plan: imp i dw daughter some dementia but not major gait problem up [place] her plan is to bring him back [place] this weekend and she will dw his pcp about any possible nph never saw neuro up [place] so we will sign off 07/18/18 still in hospital labs ok' eeg neg somewhat lethargic [place]
[2018-07-18 07:45] LABS: Calcium 8.4 mg/dL (8.5-10.1); Carbon Dioxide 16.8 meq/L (21.0-32.0); Potassium 4.3 meq/L (3.5-5.1)
[2018-07-18 09:29] VITALS: BP 141/81; PULSE 64; RESP 18; TEMP 97.3; O2SAT 98
[2018-07-18] MEDS: Insulin NovoLOG Aspart Correctional Sugar Inj SQ SCH (10:52)
[2018-07-18] MEDS: Sodium Bicarbonate 8.4% Inj 50 MEQ in Sodium Chloride 0.45 % Inj 950 ML IV.CONT SCH (10:53)
[2018-07-18] MEDS: Ferrous Sulfate 325 MG Tablet PO SCH (10:53)
--- NOTE | 2018-07-18 11:14 | P.PNIM ---
Subjective Interval history: in no acute distress. somewhat lethargic today but wakes up with calling his name. had some blood per rectum earlier today. daughter at the bedside. d/w the RN. Physical Exam Vital signs: Vital Signs 07/17/18 12:00 07/17/18 16:00 07/17/18 20:30 Temperature 97.7 F 98.2 F 98 F Pulse Rate 60 60 62 Respiratory Rate 18 18 17 Blood Pressure 151/88 H 142/87 H 146/76 H Pulse Oximetry 96 99 96 07/18/18 00:30 07/18/18 05:00 07/18/18 08:00 Temperature 97.8 F 98 F 97.3 F L Pulse Rate 62 60 64 Respiratory Rate 17 20 18 Blood Pressure 140/75 133/69 141/81 H Pulse Oximetry 97 96 98 Intake & Output 07/17/18 07/18/18 07/18/18 18:59 06:59 18:59 Intake Total 1000 / 1000 100 / 100 Balance 1000 / 1000 100 / 100 Weight 96.1 kg Intake: IV 1000 / 1000 NS Inj 1,000 ML @ 40 mls/hr IV. 1000 / 1000 CONT .[facility] Rx#:[id number] Oral 100 / 100 Other: # Voids 3 # Incontinent Voids 2 Date of Last Bowel Movement 07/17/18 07/18/18 # Bowel Movements 1 0 # Incontinent Bowel Movements 1 0 - Constitutional no acute distress - Routine Respiratory Exam Present: CTA bilaterally - Routine Cardiovascular Exam Present: RRR - Routine Abdominal Exam Present: soft - Routine Extremities Exam Comments: no pedal edema. - Routine Neurological Exam lethargic but easily arousable. Results - Labs CBC & Chem 7: 07/16/18 05:29 07/18/18 06:19 Laboratory Results - last 24 hr 07/17/18 07/17/18 07/17/18 12:15 17:22 20:38 Sodium Potassium Chloride Carbon Dioxide Anion Gap BUN Creatinine Estimated GFR POC Glucose 179 H 233 H 240 H Random Glucose Calcium 07/18/18 07/18/18 06:19 08:19 Sodium 137 Potassium 4.3 Chloride 102 Carbon Dioxide 16.8 L Anion Gap 18 H BUN 89 H Creatinine 3.37 H Estimated GFR 22 L POC Glucose 188 H Random Glucose 204 H Calcium 8.4 L - Imaging Impressions Abdomen/Bladder Ultrasound 07/17/18 00:00 CONCLUSION: 1. Trace free fluid. 2. Small kidneys. - Procedures NONE Assessment and Plan - Assessment (1) Acute encephalopathy Code(s): G93.40 - Encephalopathy, unspecified Status: Acute (2) Diabetes Code(s): E11.9 - Type 2 diabetes mellitus without complications Status: Acute (3) CHF (congestive heart failure) Code(s): I50.9 - Heart failure, unspecified Status: Acute (4) Delirium due to general medical condition Code(s): F05 - Delirium due to known physiological condition Status: Acute (5) Elevated troponin Code(s): R74.8 - Abnormal levels of other serum enzymes Status: Acute (6) Acute kidney injury Code(s): N17.9 - Acute kidney failure, unspecified Status: Acute - Plan Acute encephalopathy: - Head CT revealed Diffuse ventriculomegaly that is out of proportion to degree of atrophy. Clinical correlation for normal pressure hydrocephalus is recommended. Otherwise no acute intracranial abnormality. - Will continue with neuro checks. - neurology signed off. -Consulted palliative care to assist with goals of care.- possible rectal bleed- will hold anticoagulation for now. History of CHF: No evidence of pulmonary volume overload for now. However he does have LE pitting edema. Given mental status and renal function, hold diuretics for now. - Continue to monitor. -Patient was on hospice for end-stage CHF. Diabetes: - Hold oral hypoglycemic agents. Sliding scale insulin with Accu-Cheks. Acute versus chronic renal failure- now creatinine trending up. - His baseline is unknown and the patient has been on hospice. - Since he is not eating, started him back on IV fluid. - d/w the daughter; she's planning to proceed with comfort care and with no further w/u. Elevated troponin: - Suspect this is likely secondary to renal failure. -DNR status per my d/w the daughter. Discharge Planning: had a lengthy discussion with his both daughters; they were given an update in his clinical condition. they're aware of worsening renal function. his daughter at the bedside said that she already talked to his case management in [place] and the hospice is waiting waiting for him to resume the care. they were made aware that he's not clinically stable for discharge or the long trip back home. after our few discussions , the family finally decided to proceed with Hospice at home. they said that ' they would take him home and start him back on hospice right away'. the daughter decided to sign him out against medical advice.
--- NOTE | 2018-07-18 11:17 | P.DS ---
Date of admission: 07/13/18 17:49 Primary care physician: UNKNOWN Brief History from admission: The history is limited due to the patient's current condition and mentation. Most of the history obtained from the EMR, the patient's cousin at bedside. He is a 78-year-old male with a history of diabetes and end-stage CHF who presented to the emergency room from hospice. The patient was on hospice in [place]. There was in agreement with hospice down here. The patient arrived a couple of days ago to visit with family. He has been very tired and apparently fell multiple times at home. Lower extremity edema has been getting worse. He was eventually taken to the hospice care center. He reportedly became combative and confused overnight and was given Haldol and Ativan. When the patient's family were contacted today, they indicated that he was a full code and they wanted aggressive measures. Patient is reportedly on hospice for end- stage CHF. The patient's daughter is reportedly flying into town later today from [place] to further direct the patient's care. Patient himself briefly wakes up to stimulation but quickly falls back asleep. Not really interacting. DS: Diagnosis - Discharge Diagnosis (1) Acute encephalopathy Status: Acute (2) Diabetes Status: Acute (3) CHF (congestive heart failure) Status: Acute (4) Delirium due to general medical condition Status: Acute (5) Elevated troponin Status: Acute (6) Acute kidney injury Status: Acute DS: Summary Hospital Course: he was admitted with encephalopathy. CT head with possible normal pressure hydrocephalus- he was evaluated by neurology who signed off. the course in the hospital was complicated by acute kidney injury and rectal bleed. case was d/w his daughters and they decided to take him home with hospice. - Time Spent with Patient Total time spent providing and/or coordinating discharge services: Greater than 30 minutes (35 min.) - Quality: VTE Deep Vein Thrombosis/Pulmonary Embolism Present on Admission: No Exam Vital signs: Vital Signs 07/17/18 12:00 07/17/18 16:00 07/17/18 20:30 Temperature 97.7 F 98.2 F 98 F Pulse Rate 60 60 62 Respiratory Rate 18 18 17 Blood Pressure 151/88 H 142/87 H 146/76 H Pulse Oximetry 96 99 96 07/18/18 00:30 07/18/18 05:00 07/18/18 08:00 Temperature 97.8 F 98 F 97.3 F L Pulse Rate 62 60 64 Respiratory Rate 17 20 18 Blood Pressure 140/75 133/69 141/81 H Pulse Oximetry 97 96 98 Intake & Output 07/17/18 07/18/18 07/18/18 18:59 06:59 18:59 Intake Total 1000 / 1000 100 / 100 Balance 1000 / 1000 100 / 100 Weight 96.1 kg Intake: IV 1000 / 1000 NS Inj 1,000 ML @ 40 mls/hr IV. 1000 / 1000 CONT .Q24H [facility] Rx#:[id number] Oral 100 / 100 Other: # Voids 3 # Incontinent Voids 2 Date of Last Bowel Movement 07/17/18 07/18/18 # Bowel Movements 1 0 # Incontinent Bowel Movements 1 0 - Constitutional no acute distress - Routine Respiratory Exam Present: CTA bilaterally - Routine Cardiovascular Exam Present: RRR - Routine Abdominal Exam Present: soft - Routine Extremities Exam Comments: no pedal edema. - Routine Neurological Exam lethargic but easily arousable. Results Procedures completed during hospitalization: NONE Labs on day of discharge: Labs from last 24 hours 07/18/18 07/18/18 07/17/18 08:19 06:19 20:38 Sodium 137 Potassium 4.3 Chloride 102 Carbon Dioxide 16.8 L Anion Gap 18 H BUN 89 H Creatinine 3.37 H Estimated GFR 22 L POC Glucose 188 H 240 H Random Glucose 204 H Calcium 8.4 L 07/17/18 07/17/18 17:22 12:15 Sodium Potassium Chloride Carbon Dioxide Anion Gap BUN Creatinine Estimated GFR POC Glucose 233 H 179 H Random Glucose Calcium - Impressions ITS Impressions Chest X-Ray 07/13/18 10:36 CONCLUSION: Cardiomegaly. No acute pulmonary disease. Head CT 07/13/18 10:36 CONCLUSION: 1. Diffuse ventriculomegaly that is out of proportion to degree of atrophy. Clinical correlation for normal pressure hydrocephalus is recommended. 2. Otherwise, no acute intracranial abnormality. . Abdomen/Bladder Ultrasound 07/17/18 00:00 CONCLUSION: 1. Trace free fluid. 2. Small kidneys. Discharge Plan - Discharge Disposition Patient Disposition: 01 Discharge Home - Discharge Condition Condition: Serious - Discharge Order Discharge Orders: AMA Discharge (Routine); Ordered 07/18/18 Ordered By: Steph Rice - Physicians Team Primary Care Provider: UNKNOWN, Attending Provider: Steph Rice Other Providers: Fuentes Zuleta MD ; Diamond Morales MD
== END 2018-07-18 13:24 | disposition left against medical advice (07) ==
LOC: NEPE 10:01 → NEDA 10:01 → NEPGCP 16:03 → N05 07-15 16:06
PROVIDERS: ADMIT Internal Medicine; ATTEND Internal Medicine